=== PATIENT | male | born 1950 | race Caucasian/White ===

== ENCOUNTER → 2016-06-25 | Outpatient (CLI) | payer BC ==
--- NOTE | 2016-06-26 06:42 | PAP/PSG TECHNICIAN REPORT ---
[facility] [employer] Polysomnogram Report Study name: None Report date: 06/26/2016 Study date: 06/25/2016 Referring Physician: Dr. Stuart Name: ROBERT HARRY Interpreting Physician: Amarjit Hale M.D. Date of : 1950 [employer]: Ty Pierce RPS. Sex: Male Age: 65 StudyType: PSG PAP Weight: 185 lbs Height: 65 years, Height 5' 10" BMI: 26.54 Medications: ASPIRIN 81 MG, ATORVASTATIN CALCIUM 20 MG, OMEPRAZOLE 40 MG, Patient History PATIENT RECENTLY HAD A HOME SLEEP STUDY AND WAS POSITIVE FOR JANIYA WITH AN AHI OF 11.6/HR. HE IS HERE TODAY FOR A CPAP TITRATION. ESS = 5 RM 6 Parameters Monitored NPSG: E1-M2, E2-M1, Fp1-M2, Fp2-M1, F3-M2, F4-M2, F4-M1, C3-M2, C4-M2, C4-M1, O1-M2, O2-M2, O2-M1, T3-M2, T4-M1, P3-M2, P4-M1, CHIN1, CHIN2, HR, EKG, Legs, PFLOW, SNOR, FLOW, CFLOW, Tidal Volume, THOR, ABDO, SpO2, PLTH, CPRESS, ETCO2 Wave, ETCO2, pH Sleep Architecture Sleep Stages Time at Lights Off 11:18:13 PM STAGES Time (min.) TST (%) Time at Lights On 6:13:13 AM Wake 119.5 -- Total Recording Time (TRT) 415.50 min. N1 23.5 8 Total Sleep Period (TSP) 387.5 min. N2 189.0 64 Total Sleep Time (TST) 295.5min. N3 44.5 15 Awake Time 120.0 min. REM 38.5 13 Wake after Sleep Onset 92.0 min. Sleep Efficiency (SE) 71 % Sleep Onset Latency (EBONIE) 27.5 min. Number of Stage 1 Shifts None Awakenings 19 Stage Changes 90 Number of REM periods 3 REM 38.5 13 REM Latency 128.0 min. NREM 257.0 87 Body Position Analysis Supine Right Left Side Prone Vertical Total Sleep Time (min.) 150.8 52.0 170.1 222.08 0.0 0.0 Total Sleep Time (%) 25% 18% 58% 75 0% N/A% Total Sleep Time REM (min.) 0.0 0.0 38.5 None 0.0 0.0 Total Sleep Time NREM (min.) 73.4 52.0 131.6 None 0.0 0.0 Intermittent Wake (min.) 77.4 11.6 30.5 None 0.0 0.0 Total Sleep Period (%) 34% None None None None None Arousals Myoclonus (PLM) * Events Count Index Events Count Index Spontaneous 42 9 Events Awake (PLMW) 42 21.1 Respiratory 15 3.0 Events Asleep w/ Arousal (PLMA) 9 1.8 PLM 9 2 Events Asleep w/o Arousal (PLMS) 58 11.8 Snoring 4 1 Total Asleep 67 13.6 Total 70 14 Total 109 16 Respiratory Analysis * CA OA MA CH H RERA Total Count 0 0 0 0 13 13 13 Index 0.0 0.0 0.0 0 2.6 3 5.3 Mean Duration 0.0 0.0 0.0 0.00 26.7 16.1 21.4 Longest Duration 0.0 0.0 0.0 0.00 0.0 19.4 55.0 Respiratory Event Summary Total Supine ~Supine Right Left Prone REM NREM Apneas Count 0 0 0 0 0 N/A 0 0 Index 0.0 0 0 0.0 0.0 N/A 0 0 Hypopneas (4% Desat) Count 13 0 13 0 13 N/A 8 5 Index 2.6 0.0 4 0.0 4.6 N/A 12.5 1.2 Apneas & All Hypopneas Count 13 0 13 0 13 N/A 8 5 Index 2.6 0 4 0 5 N/A 12.5 1.2 Respiratory Events (Tree Worker+All Hyp+RERA) Count 13 9 17 0 17 N/A 8 5 Index 5.3 7 5 0.0 6.0 N/A 12.5 4.2 Respiratory Related Arousal Count 15 9 6 0 6 N/A 1 14 Index 3.0 7 2 0 2 N/A 2 3 Snoring Analysis Supine Right Left Prone REM NREM Total Snore duration 7.7 min Snores count 25 1 287 N/A 103 210 313 Snore mean duration 1.5 Sec Snores index 20 1 101 N/A 160.5 49.0 63.6 TST with snoring (%) 2.6% Desaturation Event Summary: Minimum %SpO2 Event Count Mean/Min/Max Duration(sec.) Desaturation Index % Time In Bed > 90 13 47.3 / 17.3 / 117.0 2.0 98.0 86 - 90 0 N/A 0.0 1.9 81 - 85 0 N/A 0.0 0.1 76 - 80 0 N/A 0.0 0.0 71 - 75 0 N/A 0.0 0.0 66 - 70 0 N/A 0.0 0.0 61 - 65 0 N/A 0.0 0.0 56 - 60 0 N/A 0.0 0.0 51 - 55 0 N/A 0.0 0.0 < 50 0 N/A 0.0 0.0 Total REM NREM Awake <50% 0.0 min. 0.0 min. 0.0 min. 0.0 min. 51 - 60% 0.0 min. 0.0 min. 0.0 min. 0.0 min. 61 - 70% 0.0 min. 0.0 min. 0.0 min. 0.0 min. 71 - 80% 0.1 min. 0.0 min. 0.0 min. 0.1 min. 81 - 90% 8.1 min. 3.8 min. 3.8 min. 0.5 min. 91 - 100% 399.3 min. 34.7 min. 253.2 min. 111.4 min. Average 94 93 93 95 Minimum SpO2 76 87 84 76 Desaturation Event Index 1.9 12.5 1.2 0.0 # Desat. Events below 89% 4 3 1 N/A Time(%) with Saturation below 89% 0.5 0.4 0.2 0.0 Time(min.) with Saturation below 89% 2.2 1.5 0.7 0.1 Time (mins) REM (mins) NREM (mins) % of TST SpO2 Below 90% 9 6 N3 1.1 SpO2 Below 88% 3 0 0 0 Heart Rate Analysis Min (bpm) Max (bpm) Average (bpm) Awake 51 81 59 NREM 50 76 56 REM 50 65 56 Overall 50 76 56 Supplemental O2 Values Minimum O2 level: None Value Start Time End Time [employer] Comments Mr. Harry slept in the right, left and supine positions. PVC's and PAC's noted. Leg movements noted. No bruxism noted. CPAP was initiated at +4 CMH2O and up-titrated to an optimal level of + 12 CMH2O, which nearly eliminated all respiratory events and snoring. A ResMed F10 full face size medium mask was used during titration Mr. Harry awoke to use the restroom 1 time during the night. Mr. Harry stated I did not sleep as well as I do when I am in my own bed. The final report will be interpreted and signed by a sleep physician. The completed physician report will then be placed in the patient medical record. Therapy Event: Therapy (cm H20) 4 5 6 7 9 10 11 12 Total Time at Pressure (min.) 90.7 42.9 13.1 11.0 20.8 54.7 89.2 92.7 TST at Pressure (min.) 60.2 33.9 13.1 11.0 20.3 50.7 19.2 87.2 # Periods 1 1 1 1 1 1 1 1 Sleep Onset (min.) 27.5 0.0 0.0 0.0 0.0 0.0 0.0 0.0 REM Onset (min.) N/A N/A N/A 8.7 0.0 N/A N/A 34.2 Sleep Efficiency % 66 79 100 100 97 92 21 94 Wakefulness (%) 33.6 21.0 0.0 0.0 2.4 7.3 78.5 5.9 Wakefulness (min.) 30.5 9.0 0.0 0.0 0.5 4.0 70.0 5.5 NREM 1 (%) 5.0 11.6 0.0 4.6 2.4 5.5 5.4 5.6 NREM 1 (min.) 4.5 5.0 0.0 0.5 0.5 3.0 4.8 5.2 NREM 2 (%) 32.8 67.4 94.2 63.8 28.9 72.6 16.1 55.0 NREM 2 (min.) 29.7 28.9 12.4 7.0 6.0 39.7 14.3 51.0 NREM 3 (%) 28.7 0.0 5.8 11.3 0.0 14.6 0.0 9.2 NREM 3 (min.) 26.0 0.0 0.8 1.2 0.0 8.0 0.0 8.5 REM (%) 0.0 0.0 0.0 20.4 66.3 0.0 0.0 24.3 REM (min.) 0.0 0.0 0.0 2.2 13.8 0.0 0.0 22.5 # Arousals 12 12 4 5 3 10 8 16 Arousal Index 12.0 21.2 18.3 27.3 8.9 11.8 25.1 11.0 # Snore 21 17 78 103 78 4 5 7 Snore Index 20.9 30.1 356.8 563.2 230.9 4.7 15.7 4.8 AHI 0.0 3.5 4.6 21.9 17.8 0.0 0.0 0.0 AHI Supine 0.0 0.0 N/A N/A N/A 0.0 0.0 0.0 AHI Non-Supine 0.0 5.3 4.6 21.9 17.8 0.0 0.0 0.0 NREM AHI 0.0 3.5 4.6 13.7 0.0 0.0 0.0 0.0 REM AHI N/A N/A N/A 53.7 26.2 N/A N/A 0.0 RDI 0.0 8.8 13.7 27.3 17.8 2.4 12.5 0.7 # Obstructive 0 0 0 0 0 0 0 0 # Central Ap 0 0 0 0 0 0 0 0 # Mixed 0 0 0 0 0 0 0 0 # Hypopneas 0 2 1 4 6 0 0 0 RERAS 0 3 2 1 0 2 4 1 Total Respiratory Events 0 5 3 5 6 2 4 1 Time Below SpO2 89.00% (min.) 0.0 0.0 0.0 1.5 0.6 0.0 0.0 0.0 Mean NREM SpO2 (%) 93 92 92 91 94 94 93 94 Mean REM SpO2 (%) N/A N/A N/A 90 92 N/A N/A 93 Mean Sleep SpO2 (%) 93 92 92 91 93 94 93 94 Min NREM SpO2 (%) 90 90 90 84 91 92 91 93 Min REM SpO2 (%) N/A N/A N/A 88 87 N/A N/A 92 Position Supine (min.) 8.2 11.3 0.0 0.0 0.0 4.6 18.8 30.5 Position Non-supine (min.) 52.0 22.6 13.1 11.0 20.3 46.1 0.3 56.7 LM Index Sleep 18.9 23.0 13.7 16.4 14.8 16.6 0.0 6.9 LM Index NREM 18.9 23.0 13.7 13.7 0.0 16.6 0.0 5.6 LM Index REM N/A N/A N/A 26.8 21.8 N/A N/A 10.7 Mean Heart Rate (bpm) 57 56 57 58 58 55 56 54 Min Heart Rate (bpm) 53 52 52 54 53 51 52 50
--- NOTE | 2016-06-27 00:31 | POLYSOMNOGRAPH REPORT ---
CLINICAL DATA: A 65-year-old male with BMI of 26.[address] Lockett for CPAP titration study. He had a home sleep study done which showed mild JANIYA with an AHI of 11.6. SLEEP ARCHITECTURE: Total sleep period was 387.5 minutes. Total sleep time was 295.5 minutes divided between 257 minutes of non-REM sleep and 38.5 minutes of REM sleep. Sleep onset latency was 27.5 minutes. REM latency was 128 minutes. Sleep efficiency was 71%. Awake after sleep onset was 92 minutes. Sleep consisted of stage N1 8%, N2 64%, N3 15%, REM 13%. AROUSAL DATA: Seventy arousals were recorded for an index of 14 per hour. PLM DATA: Sixty seven limb movements during sleep were noted for an index of 13.6 per hour with arousal index of 1.8 per hour. RESPIRATORY DATA: The AHI was 2.6. There were 13 hypopneic episodes. The mean duration of hypopnea was 26.7 seconds. OXIMETRY DATA: Nocturnal hypoxemia was seen. Oxygen mary was 84% during non-REM sleep. The mean saturation was 94%. Time below 88% was 3 minutes. EKG: Heart rates ranged from 50-76 beats per minute. PACs and PVCs were noted. [employer]'S COMMENTS AND TREATMENT SUMMARY: The patient slept in the right, left, and supine positions. He was started using a ResMed F10 full face mask, size medium. He was begun on CPAP and was titrated up to his final pressure setting of 12 cm water pressure. At 12 cm of water pressure, the patient slept for 87.2 minutes with an AHI of 0.7. IMPRESSION: Mild sleep apnea/hypopnea corrected with CPAP at 12 cm of water pressure ResMed F10 full face mask, size medium. RECOMMENDATIONS: The patient could be started on the above noted treatment regimen and seen back in followup within 90 days to document efficacy and compliance. [facility]
== END | disposition home or self-care (01) ==
LOC: C.NEUR 20:00
PROVIDERS: ATTEND Family Medicine
DX: G47.33 Obstructive sleep apnea (adult) (pediatric) (principal)

== ENCOUNTER → 2016-09-28 | Outpatient (CLI) | payer BC ==
[~2016-09-28] MED LIST: GADAVIST IV PRN
--- NOTE | 2016-09-28 12:13 | DIAGNOSTIC IMAGING REPORT ---
MRI OF THE BRAIN WITHOUT AND WITH IV CONTRAST CLINICAL HISTORY: Dysphagia. HISTORY OF ABNORMAL BRAIN CT. COMPARISON STUDY: Head CT dated 01/10/2016 TECHNIQUE: MRI of the brain was performed from the vertex to the skull base utilizing various T1 and T2 weighted sequences. Following the IV administration of 7.5 mL of Gadavist contrast, additional enhanced images were obtained. FINDINGS: Sagittal T1, axial diffusion, proton density and T2 weighted axial, coronal FLAIR, and pre and post axial T1-weighted images were acquired. These were supplemented with post gadolinium coronal T1 weighted images. No intra or extra-axial mass lesions are visualized. Axial diffusion-weighted images reveal no evidence of acute or subacute infarction. There is no evidence of ventricular dilatation. Proton density T2-weighted and FLAIR images reveal an old lacunar infarct in the right cerebellum. There are no abnormal flow voids. There is no evidence of pathologic enhancement. IMPRESSION: 1. Old right cerebellar lacunar infarct 2. No acute intracranial findings. No evidence of intracranial mass. No evidence of acute or subacute infarction. Electronically signed by: Feng Simon M.D. 09/28/2016 12:11 PM Dictated Date/Time: 09/28/2016 12:08 PM
== END | disposition home or self-care (01) ==
LOC: C.MRI 10:42
PROVIDERS: ATTEND Psychiatry & Neurology Neurology
DX: R13.10 Dysphagia, unspecified (principal); R94.02 Abnormal brain scan; Z86.73 Personal history of transient ischemic attack (TIA), and cerebral infarction without residual deficits

== ENCOUNTER → 2017-09-26 | Outpatient (CLI) | payer BC ==
--- NOTE | 2017-09-26 14:13 | DIAGNOSTIC IMAGING REPORT ---
R ANKLE MIN 3 VIEWS ROUTINE CLINICAL HISTORY: M25.571 pain COMPARISON: None. DISCUSSION: The bones and joint spaces appear intact. There is no evidence of fracture, dislocation or bony disease. There is no evidence for soft tissue swelling. Small heel spur IMPRESSION: Negative study. Small heel spur The above report was generated using voice recognition software. It may contain grammatical, syntax or spelling errors. Electronically signed by: Ap Hall M.D. 09/26/2017 2:11 PM Dictated Date/Time: 09/26/2017 2:11 PM
--- NOTE | 2017-09-26 14:23 | DIAGNOSTIC IMAGING REPORT ---
R FOOT MIN 3 VIEWS ROUTINE CLINICAL HISTORY: M25.571 pain COMPARISON: None. DISCUSSION: Rather significant degenerative change first metatarsophalangeal joint. Mild degenerative change of the intertarsal as well as tarsal navicular joints. Small heel spur. Moderate degenerative changes second metatarsophalangeal joint. IMPRESSION: Moderate to rather significant degenerative change primarily involving the first and to lesser extent second toes. Small heel spur. The above report was generated using voice recognition software. It may contain grammatical, syntax or spelling errors. Electronically signed by: Ap Hall M.D. 09/26/2017 2:21 PM Dictated Date/Time: 09/26/2017 2:19 PM
== END | disposition home or self-care (01) ==
LOC: C.RAD1850 13:56
PROVIDERS: ATTEND Family Medicine
DX: M25.571 Pain in right ankle and joints of right foot (principal)

== ENCOUNTER 2018-07-29 09:54 | Inpatient (IN) ==
--- NOTE | 2018-07-07 15:08 | PAT Medication Instructions ---
Medication Instructions Date of Service July 07, 2018 Home Medications Atorvastatin (Lipitor) 10mg PO PM Fluticasone (Flonase) 2 spray intranasal daily PRN Take morning of surgery With a small sip of water, OTHERWISE NOTHING TO EAT OR DRINK AFTER MIDNIGHT: Fluticasone (Flonase) 2 spray intranasal daily PRN (if needed) Take evening before surgery Atorvastatin (Lipitor) 10mg PO PM Fluticasone (Flonase) 2 spray intranasal daily PRN (if needed) Other Notes If you have any questions please call us at [phone] or [phone] or [phone] or [phone]
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
--- NOTE | 2018-07-08 10:38 | XRay Report ---
XR chest Pre-admission PA/Lat CLINICAL HISTORY: pat preoperative evaluation COMPARISON STUDY: No previous studies for comparison. FINDINGS: The bones soft tissues and hemidiaphragms are normal. The cardiomediastinal silhouette is n ormal. The lungs are clear. The pulmonary vasculature is normal. Mild emphysematous change IMPRESSION: Negative chest. Mild emphysematous change. The above report was generated using voice recognition software. It may contain grammatical, syntax or spelling errors. Electronically signed by: Ap Hall M.D. 07/08/2018 10:37 AM
[2018-07-08 10:57] LABS: BUN Creatinine Ratio 26.7 (10-20); Calcium 8.9 mg/dl (8.5-10.1); Creatinine Clr Calc Pharmacy 89.2 ml/min; Est GFR (African American) 105.5; Potassium 4.4 mmol/L (3.5-5.1)
[2018-07-08 11:00] LABS: Hematocrit (blood only) 40.1 % (42-52); Hemoglobin 13.9 g/dL (14.0-18.0); Mean Corpuscular Hgb Conc 34.7 g/dL (32-36); Mean Corpuscular Volume 88.5 fL (80-100); Mean Platelet Volume 10.3 fL (7.4-10.4); Partial Thromboplastin Time 26.9 Seconds (21.0-31.0); Platelet Count 137 K/uL (130-400); RDW Coefficient of Variation 12.8 % (11.5-14.5); RDW Standard Deviation 41.4 fL (36.4-46.3); Red Blood Count 4.53 M/uL (4.7-6.1); White Blood Count 2.98 K/uL (4.8-10.8)
[2018-07-08 11:17] LABS: Basophils # (auto) 0.01 K/uL (0-0.2); Basophils % (auto) 0.3 %; Eosinophils # (auto) 0.01 K/uL (0-0.5); Eosinophils % (auto) 0.3 %; Lymphocytes # (auto) 1.75 K/uL (1.2-3.4); Lymphocytes % (auto) 58.7 %; Monocytes # (auto) 0.49 K/uL (0.11-0.59); Monocytes % (auto) 16.4 %; Neutrophils # (auto) 0.72 K/uL (1.4-6.5); Neutrophils % (auto) 24.3 %; RBC Morphology Unremarkable
--- NOTE | 2018-07-26 10:47 | History and Physical Report ---
DATE OF ADMISSION: 07/29/2018 CHIEF COMPLAINT: Right knee pain. HISTORY OF PRESENT ILLNESS: The patient 67-year-old gentleman who has had about 4- or 5-year history of gradually increasing and progressive right knee pain and discomfort. He has been through extensive conservative treatment including both steroid shots and viscosupplementation, which have become less successful over time. The shots helped for a couple days and the viscosupplementation did not help at all. He has become more debilitated by his disease. He has got pain all the time. The more he walks and the more he weightbears, the more pain he has. He was an avid runner in the past but is having difficulty even walking any significant distance. He is really interested in surgical treatment to try and fix his knee. PAST MEDICAL HISTORY: 1. Elevated cholesterol. 2. Sleep apnea with CPAP machine. 3. Low back pain. PAST SURGICAL HISTORY: Includes, 1. Tonsillectomy. 2. Hernia repair. 3. Lipoma removal. 4. Thumb repair. 5. Carpal tunnel release. ALLERGIES: None. CURRENT MEDICATIONS: Lipitor. SOCIAL HISTORY: He is a 67-year-old male. He is . 6 drinks per week. Does not smoke. FAMILY HISTORY: Noncontributory. REVIEW OF SYSTEMS: Negative for diabetes, neurologic problem, vascular problem, or bleeding disorders. No chest pain or shortness of breath. No history of DVT or PE. No bleeding problems. PHYSICAL EXAMINATION: GENERAL: Reveals a healthy, pleasant middle-aged male. Looks to be in excellent health. HEENT: Benign. NECK: Supple. No lymphadenopathy. LUNGS: Clear to auscultation. HEART: Regular rate and rhythm. ABDOMEN: Soft, nontender, nondistended. EXTREMITIES: Grossly neurovascularly intact except as follows: Examination of the right knee shows moderately advanced medial compartment arthritis. He has got essentially complete loss of his joint space, particularly in the 40 degree flexion films. He has got some lateral compartment disease as well. ASSESSMENT: A 67-year-old gentleman and a previous avid runner with right knee degenerative joint disease. It is fairly advanced and is beyond the point where a knee arthroscopy would help him. He has failed conservative treatment and would like intervention, so that at least he can walk and become more active. PLAN: We talked about treatment options and the best treatment for this gentleman at his age with his disease is a knee replacement. We will take him to the operating room and do a right total knee replacement. The risks and benefits of this procedure were explained to the patient including but not limited to DVT, PE, , infection, neurological injury, vascular injury, bleeding problem, pain, limited range of motion, stiffness, failure to relieve symptoms, incomplete relief of symptoms, need for further surgery in the future, fracture, leg length inequality, nerve palsy, need for revision surgery. The patient understands and desires to proceed. Informed consent was obtained. I did talk to him specifically about knee replacement, it is not made for running or impact activities. The goal is to get him back walking and not necessarily running. The patient understands and desires to proceed.
[~2018-07-29 09:54] MED LIST changes: +ACETAMINOPHEN 500 MG TAB PO SCH; +BUPIVACAINE 0.5 % 5 MG/1 ML PF 10ML VIAL ONE; +BUPIVACAINE LIPOSOME/PF 266 MG, BUPIVACAINE/EPINEPHRINE 50 ML, SODIUM CHLORIDE 0.9% 30 ... INFIL SCH; +CEFAZOLIN 2000MG 2,000 MG/15 ML SYR IV SCH; +EPINEPHrine INJ 1 MG/ML AMP ONE; +FAMOTIDINE 20 MG TAB PO SCH; +GABAPENTIN 300 MG PO SCH; -GADAVIST IV PRN; +LR 500ML BOLUS, THEN 15ML/HR IV SCH; +LR 60ML/HR IV SCH; +METOCLOPRAMIDE HCL 10 MG TABLET PO SCH; +ROPIVACAINE 0.5% 5 MG/ML 30 ML VIAL ONE; +SCOPOLAMINE 1.5 MG TDSY TD SCH; +TRANEXAMIC ACID 1,000 MG **IV Intra-op IV SCH
--- NOTE | 2018-07-29 10:32 | History & Physical Bridge Note ---
Date of Service July 29, 2018 History & Physical Bridge Note I have examined the patient, reviewed the History & Physical and in the interval since the performance of the History & Physical I have noted the following changes of clinical significance: no changes noted
[2018-07-29] MEDS ORDERED: LABETALOL HCL IV 5 MG/ML 20ML IV PRN (10:44)
[2018-07-29] MEDS ORDERED: fentaNYL citrate 100 MCG/2 ML VIAL IV PRN (10:44)
[2018-07-29] MEDS ORDERED: HYDROmorphone INJ 1 MG/ML SYRINGE IV PRN (10:44)
[2018-07-29] MEDS ORDERED: MEPERIDINE HCL 25 MG/ML CARP IV PRN (10:44)
[2018-07-29] MEDS ORDERED: PHENYLEPHRINE 100MCG/ML 5ML SYR IV PRN (10:44)
[2018-07-29] MEDS ORDERED: ePHEDrine sulfate 50 MG/ML AMP IV PRN (10:44)
[2018-07-29] MEDS ORDERED: ONDANSETRON INJ 2 MG/ML 2 ML VIAL IV PRN ×2 (10:44→15:51)
[2018-07-29] MEDS ORDERED: ATROPINE SULFATE 0.1 MG/ML 10ML SYR IV PRN (10:44)
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
[2018-07-29] MEDS ORDERED: MIDAZOLAM HCL 1 MG/ML 2ML VIAL ONE (11:57)
[2018-07-29] MEDS ORDERED: fentaNYL citrate 100 MCG/2 ML VIAL ONE (11:57)
[2018-07-29] MEDS ORDERED: BUPIVACAINE LIPOSOME 1.3% 266 MG/20 ML VIAL ONE (12:33)
[2018-07-29] MEDS ORDERED: BACITRACIN INJ 50,000 UNIT VIAL ONE (12:33)
[2018-07-29] MEDS ORDERED: SODIUM CHLORIDE 0.9% PF 50 ML VIAL ONE (12:33)
[2018-07-29] MEDS ORDERED: EPINEPHrine INJ 1 MG/ML AMP ONE (12:33)
[2018-07-29] MEDS ORDERED: BUPIVACAINE 0.25% 30 ML VIAL ONE (12:34)
[2018-07-29] MEDS ORDERED: PROPOFOL IV EMULSION 10 MG/ML 20 ML VIAL IV ONE (14:24)
[2018-07-29] MEDS ORDERED: LIDOCAINE HCL 2% 2 ML VIAL/AMP(20MG/ML) INFIL ONE (14:24)
--- NOTE | 2018-07-29 14:29 | Post Operative Brief Note ---
Immediate Post Op Note v1 Date of Surgery July 29, 2018 Pre & Post Diagnosis Operation Date: 07/29/18 12:30 Pre-Op Diagnosis: RIGHT KNEE DEGENERATIVE JOINT DISEASE Post-Op Diagnosis: RIGHT KNEE DEGENERATIVE JOINT DISEASE Procedure Operation Date: 07/29/18 12:30 Actual Procedures p Right Total Knee Arthroplasty, Cemented(Right) - Hector Angelo MD Surgeon Hector Angelo MD Mill Controller Chantale, PAC Estimated Blood Loss 50 Findings Consistent with Post-Op Diagnosis Fluids 1700 cc Specimens Right Knee Drains Dhillon Catheter Anesthesia Type Spinal MAC Complications none Disposition Accompanied Patient To Recovery: No Disposition: Recovery Room
--- NOTE | 2018-07-29 14:50 | Anesthesiology Progress Note ---
Date of Service July 29, 2018 Anesthesia Post Procedure Vital Signs Vital Signs: Temp Pulse Pulse Resp BP Pulse Ox 07/29/18 14:47 50 L 16 102/59 L 100 07/29/18 14:35 36.7 C 62 16 99/60 L 99 07/29/18 10:27 36.7 C 69 18 141/91 H 96 Notes Mental Status: alert / awake / arousable Patient Amnestic to Procedure: Yes Nausea / Vomiting: adequately controlled Pain: adequately controlled Airway Patency, RR, SpO2: stable & adequate BP & HR: stable & adequate Hydration State: stable & adequate Neuraxial Anesthesia: was administered and sensory block is resolving Anesthetic Complications: no major complications apparent and Pt Satisfied with anesthetic care
--- NOTE | 2018-07-29 15:19 | XRay Report ---
XR knee RT 2V routine CLINICAL HISTORY: Surgical Post Op DEGENERATIVE ARTHRITIS COMPARISON: 03/29/2018 DISCUSSION: There are postsurgical changes of a total right knee arthroplasty and patellar resurfacin g. The femoral tibial components appear well seated. Overlying skin jeet are evident. There is air within the soft tissues consistent with recent surgery. There is no evidence for soft tissue swellin g. IMPRESSION: Postsurgical changes of a total right knee arthroplasty. Electronically signed by: Feng Simon M.D. 07/29/2018 3:17 PM
[2018-07-29] MEDS ORDERED: NALOXONE HCL 0.4 MG/1 ML VIAL/CARP IV PRN (15:51)
[2018-07-29] MEDS ORDERED: FLUTICASONE PROPIONATE NA SPR 16 GM BTL PRN (15:51)
[2018-07-29] MEDS ORDERED: TAMSULOSIN HCL 0.4 MG CAP PO PRN (15:51)
[2018-07-29] MEDS ORDERED: METOCLOPRAMIDE HCL INJ 5 MG/ML 2 ML VIAL IV PRN (15:51)
[2018-07-29] MEDS ORDERED: ALUMINUM/MAGNESIUM SUSP 30 ML UDC PO PRN (15:51)
[2018-07-29] MEDS ORDERED: MAGNESIUM HYDROXIDE SUSP 30 ML UDC PO PRN (15:51)
[2018-07-29] MEDS ORDERED: BISACODYL 10 MG SUPP PR PRN (15:51)
[2018-07-29] MEDS: SODIUM CHLORIDE 0.9% 1000ML 1,000 ML IV SCH (16:14)
[2018-07-29] MEDS: CHECK SCOPOLAMINE PATCH PLACEMENT SCH ×2 (16:15→23:59)
[2018-07-29] MEDS: ASCORBIC ACID 500 MG TAB PO SCH (17:11)
[2018-07-29] MEDS: FERROUS GLUCONATE 324 MG TAB PO SCH (17:11)
[2018-07-29] MEDS: KETOROLAC TROMETHAMINE 15 MG/ML VIAL IV SCH ×2 (18:06→23:59)
[2018-07-29] MEDS: CEFAZOLIN 2000MG 2,000 MG/15 ML SYR IV SCH (19:55)
[2018-07-29] MEDS ORDERED: TRANEXAMIC ACID 1,000 MG in 0.9 % SODIUM CHLORIDE 100 ML IV SCH (20:31)
[2018-07-29] MEDS: ATORVASTATIN 10 MG TAB PO SCH (21:07)
[2018-07-29] MEDS: HYDROmorphone INJ 0.5 MG/0.5 ML SYR IV PRN (21:07)
[2018-07-29] MEDS: TAPENTADOL HCL ER 50 MG TABCR PO SCH (21:07)
[2018-07-29] MEDS: SENNA 8.6 MG TAB PO SCH (21:07)
[2018-07-29] MEDS: ASPIRIN 81 MG ECTAB PO SCH (21:07)
[2018-07-29] MEDS: DOCUSATE SODIUM 100 MG CAP PO SCH (21:07)
[2018-07-29] MEDS: ACETAMINOPHEN 500 MG TAB PO SCH (22:21)
--- NOTE | 2018-07-29 22:43 | Operative Report ---
DATE OF OPERATION: 07/29/2018 SURGEON: Hector Angelo MD BUSINESS EXECUTIVE: ELIZABETH Szymanski PREOPERATIVE DIAGNOSIS: Right knee degenerative joint disease. POSTOPERATIVE DIAGNOSIS: Same. PROCEDURE PERFORMED: Right cemented posterior stabilized total knee arthroplasty. COMPLICATIONS: None. ESTIMATED BLOOD LOSS: 50 mL. FLUID REPLACEMENT: 1700 mL crystalloid fluid replacement. TOURNIQUET TIME: 58 minutes at 300 mmHg. ANESTHESIA: Spinal with adductor canal block. DRAINS: None. SPECIMENS: Right knee sent for pathology. OPERATIVE INDICATIONS: The patient is a 67-year-old very active gentleman who has had a year history of markedly increasing right knee pain and discomfort, unresponsive to conservative care. He is used to maintaining an active lifestyle and has been unable to do anything close to that due to his recurrent knee pain, discomfort, and swelling. He has been through extensive conservative care without adequate relief. He elected to proceed with surgical treatment. OPERATIVE FINDINGS: Operative findings were advanced right knee DJD. He had extensive grade 4 changes of the medial compartment as well as patellofemoral compartment. The lateral compartment was pretty well spared. He did have a significant joint effusion. OPERATIVE IMPLANTS: Operative implants consisted of, 1. Biomet Vanguard size 70 right posterior stabilized femoral component. 2. A Biomet size 75 tibial tray. 3. A 12-mm posterior stabilized polyethylene insert. 4. A 31 x 8 all poly patella. OPERATIVE PROCEDURE: The patient was taken to the operating room, identified and placed on the operating table in supine position. All contact areas were appropriately padded. IV antibiotics were provided by the anesthesia team. Dhillon catheter was placed in sterile fashion. A right thigh tourniquet was then placed and the right lower extremity was then prepped and draped in the usual sterile fashion. The right leg was elevated and exsanguinated with Esmarch and tourniquet was placed at 300 mmHg. An anterior approach to the right knee was then performed through a longitudinal incision centered over the patella. Sharp dissection was carried through subcutaneous tissues down to the level of the extensor mechanism. Medial parapatellar arthrotomy incision was made. Some subperiosteal dissection was carried out medially. The fat pad was resected from beneath the patellar tendon. The lateral patellofemoral ligament was released. Patella was everted and knee was flexed. The osteophytes were taken off the distal femur. The ACL and PCL were then released from the distal femur. The tibia subluxated anteriorly. The external tibial alignment jig was placed in the anterior face of the tibia and adjusted 16 mm medially. Proximal tibial cut was made to remove about 2-3 mm of bone from the most deficient aspect of the medial tibial plateau. Some osteophytes were taken off medial and posteromedially. Tibia was sized to a size 75. Attention was then drawn to the femur. The distal femur was entered with a sharp drill bit. Intramedullary canal was suctioned. A right 6-degree valgus cutting guide was placed. The distal femoral cutting block was pinned in place. Distal femoral cut was made to take an additional 3 mm of bone off the distal femur. Femur was then sized to a size 70. We did downsize this slightly. The AP cutting block was pinned parallel to the epicondylar axis, which was 3 degrees of external rotation. The anterior cut, anterior chamfer, posterior cut, posterior chamfer cuts were made. Box cutting guide was placed and adjusted slightly lateral and the box cut was made. The knee was flexed. The remnants of the medial and lateral menisci were excised. The osteophytes were taken off the posterior aspect of the femur. Trial femoral component was placed. The tibial tray was pinned in maximum external rotation and drill and stem punch were used to create a defect in proximal tibia for the tibial tray. The knee was then trialed and a 12 mm insert fit most appropriately. Attention was then drawn to the patella. The patella was cleaned of all soft tissue. Patellar thickness measured 22 mm in thickness and it was cut down to 13. It was sized to a size 31 patella. Lug holes were drilled for 31 patella. The lateral osteophyte was removed. Patellar button was placed. Knee was taken through range of motion and patella tracked nicely with no thumbs test. Attention was then drawn toward placement of the permanent components. All trial components were removed. Bone plug was placed in the distal femur to limit blood loss. A double batch of Palacos G cement was mixed. A Biomet Vanguard size 70 right posterior stabilized femoral component, size 75 tibial tray, a 12 mm posterior stabilized polyethylene insert, and a 31 x 8 all poly patella were then cemented in place. Knee was brought out into full extension until the cement hardened. A final cement check was then performed. Pericapsular tissues were injected with a total of 100 mL of a combination of 20 mL of Exparel, 30 mL of normal saline, 50 mL of 0.25% Marcaine with epinephrine. The patient did receive 1 gram of tranexamic acid. The tourniquet was then let down for a final tourniquet time of 58 minutes. Hemostasis was assured using electrocautery. Extensor mechanism was then closed with a combination of #1 PDS suture and #1 Vicryl suture in a [id number] fashion. Extensor mechanism was checked and found to be intact. The subcutaneous tissues were then closed with #2 Dexon suture in a buried interrupted fashion. The skin was closed with skin jeet. Leg was then cleaned, dried, and a sterile dressing of Xeroform, 4 x 4's, sterile cast padding, and Christophe bandage were applied. The patient was then transferred to the recovery room in stable condition. The patient tolerated the procedure well with no complications. All needle and sponge counts were correct at the end of the operation. I attest to the content of the Intraoperative Record and any orders documented therein. Any exception s are noted below.
[2018-07-30] MEDS: SODIUM CHLORIDE 0.9% 1000ML 1,000 ML IV SCH (02:15)
[2018-07-30] MEDS ORDERED: Nursing to Pharmacy Communication ONE (02:16)
[2018-07-30] MEDS: OXYCODONE HCL IR 5 MG TAB (IMMEDIATE RELEASE) PO PRN ×3 (02:43→18:17)
[2018-07-30] MEDS: CEFAZOLIN 2000MG 2,000 MG/15 ML SYR IV SCH (04:37)
[2018-07-30] MEDS: KETOROLAC TROMETHAMINE 15 MG/ML VIAL IV SCH ×4 (06:10→22:53)
[2018-07-30] MEDS: ACETAMINOPHEN 500 MG TAB PO SCH ×3 (06:11→22:53)
[2018-07-30 07:11] LABS: Hematocrit (blood only) 32.3 % (42-52); Hemoglobin 11.3 g/dL (14.0-18.0); Mean Corpuscular Volume 87.5 fL (80-100); Mean Platelet Volume 10.1 fL (7.4-10.4); Platelet Count 107 K/uL (130-400); RDW Coefficient of Variation 12.8 % (11.5-14.5); RDW Standard Deviation 41.2 fL (36.4-46.3); Red Blood Count 3.69 M/uL (4.7-6.1); White Blood Count 3.33 K/uL (4.8-10.8)
[2018-07-30 07:45] LABS: BUN Creatinine Ratio 15.6 (10-20); Calcium 7.7 mg/dl (8.5-10.1); Creatinine Clr Calc Pharmacy 78.7 ml/min; Est GFR (African American) 96.8; Est GFR (Non-African American) 83.6; Potassium 4.1 mmol/L (3.5-5.1)
[2018-07-30] MEDS: ASCORBIC ACID 500 MG TAB PO SCH ×2 (08:36→18:15)
[2018-07-30] MEDS: FERROUS GLUCONATE 324 MG TAB PO SCH ×2 (08:36→18:14)
[2018-07-30] MEDS: MULTIVITAMIN TAB PO SCH (08:36)
[2018-07-30] MEDS: ASPIRIN 81 MG ECTAB PO SCH ×2 (08:37→20:07)
[2018-07-30] MEDS: TAPENTADOL HCL ER 50 MG TABCR PO SCH ×2 (08:41→20:07)
--- NOTE | 2018-07-30 10:19 | Anesthesiology Progress Note ---
Date of Service July 30, 2018 Anesthesia Post Procedure Vital Signs Vital Signs: Temp Pulse Pulse Pulse Resp BP Pulse Ox 07/30/18 07:41 37.1 C 53 L 16 108/56 L 96 07/30/18 03:00 36.8 C 56 L 16 121/72 96 07/29/18 22:59 37.1 C 56 L 16 130/76 98 07/29/18 18:21 36.5 C 46 L 20 124/76 97 07/29/18 17:21 36.5 C 42 L 20 130/80 99 07/29/18 16:21 36.7 C 44 L 20 119/64 99 07/29/18 16:07 36.5 C 55 L 20 112/64 96 07/29/18 15:40 36.7 C 52 L 18 104/59 L 96 07/29/18 15:15 51 L 15 98/61 L 94 07/29/18 15:05 54 L 14 104/60 97 07/29/18 14:55 55 L 16 103/64 100 07/29/18 14:45 50 L 16 102/59 L 100 07/29/18 14:35 36.7 C 62 16 99/60 L 99 07/29/18 10:27 36.7 C 69 18 141/91 H 96 Pain Intensity Right Knee: Pain Intensity: 3 Notes Mental Status: alert / awake / arousable Nausea / Vomiting: adequately controlled Pain: adequately controlled Airway Patency, RR, SpO2: stable & adequate BP & HR: stable & adequate Hydration State: stable & adequate Neuraxial Anesthesia: was administered and sensory block resolved Anesthetic Complications: no major complications apparent and Pt Satisfied with anesthetic care
[2018-07-30] MEDS: HYDROmorphone INJ 0.5 MG/0.5 ML SYR IV PRN ×3 (10:33→20:07)
[2018-07-30] MEDS: DOCUSATE SODIUM 100 MG CAP PO SCH ×2 (10:34→20:07)
--- NOTE | 2018-07-30 15:32 | Progress Note ---
DATE: 07/30/2018 SUBJECTIVE: 67-year-old gentleman postop day 1 from right knee replacement. He is doing okay. His knee is pretty sore. No chest pain or shortness of breath. Not feeling dizzy or lightheaded. OBJECTIVE: VITAL SIGNS: Temperature 37.2. Vital signs stable. PHYSICAL EXAMINATION: GENERAL: Reveals a pleasant, middle-aged male. He is sitting up in bed and talking to his . He looks reasonably comfortable. LUNGS: Clear to auscultation. HEART: Regular rate and rhythm. ABDOMEN: Soft, nontender, nondistended. EXTREMITIES: Grossly neurovascularly intact except as follows: Examination of the right leg reveals the dressing to be in place. There is a little bit of bloody drainage on the anterior aspect of his dressing. He can dorsiflex and plantarflex his foot appropriately. He is neurologically intact. LABORATORY DATA: Hemoglobin 11.3. Hematocrit 32.3. Electrolytes are stable. ASSESSMENT: 67-year-old gentleman postop day 1 from right knee replacement, doing reasonably well. His pain is reasonably well controlled. He is neurologically intact. PLAN: 1. DVT prophylaxis including thigh-high TEDs, SCDs, and aspirin twice a day. 2. PT/OT. Weight bear as tolerated. Right total knee protocol. 3. Pain control, doing okay with current pain regimen. 4. Disposition: Plan to discharge to home with some home health once adequately recovered.
[2018-07-30] MEDS: SENNA 8.6 MG TAB PO SCH (20:07)
[2018-07-30] MEDS: ATORVASTATIN 10 MG TAB PO SCH (20:07)
[2018-07-31] MEDS: KETOROLAC TROMETHAMINE 15 MG/ML VIAL IV SCH ×2 (05:53→11:31)
[2018-07-31] MEDS: ACETAMINOPHEN 500 MG TAB PO SCH ×2 (05:54→13:44)
[2018-07-31] MEDS: OXYCODONE HCL IR 5 MG TAB (IMMEDIATE RELEASE) PO PRN ×2 (07:28→16:23)
[2018-07-31] MEDS: ASPIRIN 81 MG ECTAB PO SCH (07:29)
[2018-07-31] MEDS: DOCUSATE SODIUM 100 MG CAP PO SCH (07:29)
[2018-07-31] MEDS: ASCORBIC ACID 500 MG TAB PO SCH (07:29)
[2018-07-31] MEDS: FERROUS GLUCONATE 324 MG TAB PO SCH (07:30)
[2018-07-31] MEDS: MULTIVITAMIN TAB PO SCH (07:30)
[2018-07-31] MEDS: TAPENTADOL HCL ER 50 MG TABCR PO SCH (07:32)
--- NOTE | 2018-07-31 08:01 | Progress Note ---
DATE: 07/31/2018 SUBJECTIVE: A 67-year-old gentleman postop day 2 from a right knee replacement. He is doing pretty well. Had a little bit of a low-grade fever overnight. No other complaints of knee pain. It is manageable with meds. No chest pain or shortness of breath. Not feeling dizzy or lightheaded. OBJECTIVE: VITAL SIGNS: Temperature is 37.9. Vital signs stable. GENERAL: Physical examination reveals a pleasant, middle-aged male. He is lying in bed, looks pretty comfortable. EXTREMITIES: Examination of the right leg reveals the leg to be well aligned. Some moderate swelling around his knee. Just a trace bit of drainage. Calf is soft and supple. He is neurologically intact. ASSESSMENT: A 67-year-old gentleman postop day 2 from right knee replacement, doing pretty well. He has had a low-grade fever, which is not unusual. There are no focal signs of infection or problems. His pain is controlled. PLAN: 1. DVT prophylaxis including thigh-high TEDs, SCDs, and aspirin twice a day. 2. PT and OT. Weight bear as tolerated. Right total knee protocol. 3. Pain control. Doing well with current pain regimen. 4. Disposition: Plan to discharge to home with some home health later today.
--- NOTE | 2018-08-02 03:29 | Discharge Summary ---
ADMITTING PHYSICIAN AND SURGEON: Hector Angelo MD ADMITTING DIAGNOSIS: Right knee degenerative joint disease. SURGERY PERFORMED: Right total knee arthroplasty. SECONDARY DIAGNOSES: Elevated cholesterol, sleep apnea, low back pain. CONSULTATIONS: None obtained. HISTORY AND PHYSICAL EXAMINATION: Well documented in the patient's chart. HOSPITAL COURSE: The patient was admitted on 07/29/2018, underwent total knee arthroplasty, and tolerated the procedure well. There were no complications. He was transferred to the PACU postoperatively and later to the orthopedic floor for further care. He was given Ancef for antibiotic prophylaxis, KATEY stockings, SCDs, and aspirin for DVT prophylaxis. Hemoglobin, hematocrit, and vital signs were monitored during his hospital stay and remained stable. He developed some mild postoperative anemia. Did not require any blood transfusions. There were no complications. By postoperative day 2, he was tolerating a regular diet. Pain was controlled with oral pain medicine. He was participating in physical therapy. On postop day 2, he was discharged home, set up with home health services. He was given printed discharge instructions including new prescriptions for Extra Strength Tylenol, aspirin, oxycodone. Continue his home medications, continue physical therapy, weightbearing as tolerated, KATEY stockings. Follow up in approximately 2 weeks postop or sooner if there are any problems or concerns.
== END 2018-07-31 16:42 | disposition home health service (06) | DRG 470 ==
LOC: ASU 09:54 → 3E 14:33
DX: Z86.73 Personal history of transient ischemic attack (TIA), and cerebral infarction without residual deficits; E78.5 Hyperlipidemia, unspecified; Z87.891 Personal history of nicotine dependence; R73.03 Prediabetes; M17.11 Unilateral primary osteoarthritis, right knee; G47.30 Sleep apnea, unspecified

== ENCOUNTER 2025-04-18 16:46 | Inpatient (IN) ==
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
[2025-04-18] MEDS: SODIUM CHLORIDE 0.9% 1,000 ML IV ONE (18:03)
[2025-04-18] MEDS: ACETAMINOPHEN 1,000 MG/100 ML VIAL IV STA (18:20)
[2025-04-18 18:25] LABS: Hematocrit (blood only) 33.1 % (42.0-52.0); Hemoglobin 11.7 g/dl (14.0-18.0); Mean Corpuscular Hemoglobin 32.5 pg (25.0-34.0); Mean Corpuscular Volume 91.9 fL (80.0-100.0); Platelet Count 99 K/uL (130-400); RDW Standard Deviation 46.7 fL (36.4-46.3); Red Blood Count 3.60 M/uL (4.70-6.10); White Blood Count 28.53 K/ul (4.8-10.8)
[2025-04-18] MEDS: LIDOCAINE 5% 1 PATCH TD STA (18:27)
[2025-04-18] MEDS: OPTIRAY 320 100ml IV ONE (18:35)
[2025-04-18 18:38] LABS: Alanine Aminotransferase 11.0 U/L (7-52); Albumin Globulin Ratio 1.1 (0.9-2); Albumin Level 4.1 gm/dl (3.4-5.0); Alkaline Phosphatase 117.0 U/L (34-104); Anion Gap 8.0 (3-11); Bilirubin,Total 0.4 mg/dl (0.2-1.0); Blood Urea Nitrogen 14.0 mg/dl (6-23); Calcium 9.4 mg/dl (8.6-10.3); Carbon Dioxide 26.0 mmol/L (21-32); Chloride 101.0 mmol/L (98-107); Creatinine Clr Calc Pharmacy 77.2 ml/min; Globulin 3.7 gm/dl (2.5-4.0); Glucose 94.0 mg/dl (70-99(Fasting)); Lipase 21.0 U/L (11-82); Magnesium 1.7 mg/dl (1.7-2.4); Potassium 3.8 mmol/L (3.5-5.1); Sodium 135.0 mmol/L (136-145); Total Protein 7.8 gm/dl (6.0-8.3)
[2025-04-18 18:54] LABS: Thyroid Stimulating Hormone 2.441 uIu/ml (0.300-4.500)
[2025-04-18 18:55] LABS: INR 1.1 (0.9-1.1); Prothrombin Time 11.9 Seconds (9.0-12.0)
--- NOTE | 2025-04-18 18:57 | XRay Report ---
Chest radiograph, one view History: Chest pain Comparison: None Findings: Single AP view of the chest performed. No focal consolidation or pleural effusion. No pneumothorax. The cardiomediastinal silhouette is within normal limits. Normal pulmonary vascularity. No evidence for lymphadenopathy. No visualized bony or soft tissue abnormality. Impression: Normal chest radiograph Electronically signed by Edwin Blanc 04-18-2025 6:56 PM
[2025-04-18 19:08] LABS: ALC (manual) 2.00 K/uL (1.2-3.4); ANC (manual) 19.97 K/uL (1.4-6.5); Blast # (manual) 0.29 K/uL (0-0); RBC Morphology Unremarkable
--- NOTE | 2025-04-18 19:31 | CT Scan Report ---
EXAMINATION: CT of the abdomen and pelvis performed after the administration of IV contrast TECHNIQUE: Helical CT images from the lung bases through the symphysis pubis were obtained with contrast. Coronal and sagittal reformatted images were generated at a workstation for further assessment. Dose reduction techniques were achieved by using automatic exposure control and/or adjustment of mA and/or kV according to patient size and/or use of iterative reconstruction technique. COMPARISON: 03/29/2025 HISTORY: Abdominal pain FINDINGS: Lower chest: No consolidation. No pleural effusion or pneumothorax. Left lower lobe 7 mm nodule on image 9, and 6 mm nodule in the left lower lobe on image 27 are unchanged. Liver: The contrast-enhanced liver is normal in size, contour, and attenuation.The hepatic veins and portal veins are patent. There is a 12 mm right lobe hepatic cyst. Gallbladder: Unremarkable. Spleen: The spleen is enlarged measuring 16.5 cm in length. Pancreas: Unremarkable. Adrenal glands: Unremarkable. Kidneys: The contrast enhanced kidneys are normal in size and without hydronephrosis. The kidneys enhance symmetrically. Abdominal vasculature: The abdominal aorta is normal in course and caliber noting mild/moderate atherosclerotic calcification. Bowel: A large segment of the sigmoid colon is contained within a left inguinal hernia. There is large subsolid colonic fecal retention. No bowel obstruction is seen. Enteric contrast reaches the right colon. A segment of small bowel is contained within the right inguinal hernia. The appendix is well-visualized and normal. Peritoneum: There is no intraperitoneal free air or abdominal ascites. Lymph nodes: Mildly prominent, shotty appearing retroperitoneal, pelvic and inguinal lymph nodes are unchanged. Pelvic viscera: The prostate gland is mildly enlarged and heterogeneous. The bladder wall appears thickened/trabeculated indicating chronic outlet obstruction. There are left larger than right inguinal hernias. Both hernias contain segments of bowel. Skeletal structures: The skeletal structures are osteopenic. There is moderate lumbosacral spondylosis. S1 is a transitional lumbosacral segment. There are bilateral pars defects at L5 with 10 mm anterolisthesis of L5-S1. No lytic or blastic lesions are seen. Degenerative change is noted in the sacroiliac joints and pubic symphysis. IMPRESSION: Large, subsolid colonic stool burden suggestive of constipation. Bilateral inguinal hernias containing a bowel, similar to prior. No bowel obstruction. No change in 7 mm and 6 mm pulmonary nodules in the left lower lobe. Electronically signed by Edwin Blanc 04-18-2025 7:31 PM
--- NOTE | 2025-04-18 20:57 | History & Physical Report ---
Date of Service April 18, 2025 Assessment & Plan (1) Myelodysplastic syndrome: (2) Diarrhea: (3) Bradycardia: (4) Low back pain: (5) Sleep apnea: (6) Hyperlipidemia: Plan 74yo male with history of MDS presenting with diarrhea, abdominal pain and bloating #Myelodysplastic syndrome - patient had a bone marrow biopsy performed on 11/05/24 which revealed normocellular bone marrow with maturing trilineage hematopoiesis, negative for overt dysplasia, mild myelofibrosis. Flow cytometry with atypical/left shifted myeloid maturation with 10.4% myeloblasts. Patient with leukocytosis presently with WBC=28.52 with presence of immature cells - metamyelocytes, myelocytes and blasts. LAD again noted on CT imaging - unchanged from prior. Concern for possible progression of disease. -Admit to medical with telemetry -Follow blood cultures sent from the ER -Check peripheral blood smear -Repeat CBC with differential in AM -Hematology/Oncology consultation appreciated -Continue chronic suppressive therapy with Acyclovir 400mg po BID, Cefdinir 300mg po BID and Fluconazole 200mg po qPM (order placed for PM dose) #Bradycardia- patient with sinus bradycardia, largely asymptomatic. HR did dip into the 30's while in the ER. Blood pressure maintained. Possibly secondary to Fluconazole or Acyclovir? Uncommon side effects -Telemetry monitoring -Check random cortisol -Atropine if patient becomes symptomatic - not currently ordered #Diarrhea - patient with diarrhea ongoing for the last [address] with large subsolid colonic tool burden suggestive of constipation. Possible overflow diarrhea. -Check stool PCR and c. diff studies -Miralax 17mg po BID -Senna/Colace po qAM -IVF with LR at 100mL/hr x 2L -Electrolyte repletion -Magnesium x 3gm ordered #JANIYA -CPAP qHS 12cm H2O #Hyperlipidemia -Continue Atorvastatin 10mg po q daily F/E/N - LR at 100mL/hr x 2L, Mg repletion, Regular diet Ppx - Lovenox - monitor platelets Code - Full History of Present Illness Chief Complaint: diarrhea Primary Care Provider: DO Nayan Hodges Talat is a 74yo male with history of Myelodysplastic Syndrome on Pegfilgrastim injections (FULPHILA) - last injection 3 weeks ago, Acyclovir, Cefdinir and Fluconazole for chronic suppressive therapy presenting with abdominal distention, bloating and diarrhea over the last 4 days. Patient reports passing watery, non-bloody bowel movements over the last 4 days. Some abdominal distention and bloating. No nausea, vomiting. No fever but has had some chills. Patient is scheduled to have a repeat bone marrow biopsy and possible lymph node biopsy to be performed on 04/27/25. He had a CT scan performed 03/29/25 which revealed several prominent to mildly enlarged axillary, mediastinal, abdominal, pelvic and inguinal lymph nodes as well as splenomegaly. In the ER patient is afebrile, bradycardia ER Course: Tylenol 1gm NSS x 1L Lidoderm patch [id number] Miralax 17gm Allergies Allergy/AdvReac Type Severity Reaction Status Date / Time No Known Drug Allergies Allergy Unknown Unknown Verified 03/09/25 12:33 Home Medications Medication Instructions Recorded Confirmed Type atorvastatin 10 mg tablet (Lipitor) 10 mg PO DIRECTED 05/01/22 04/18/25 History acyclovir 400 mg tablet 400 mg PO BID 02/10/25 04/19/25 History fluconazole 200 mg tablet 200 mg PO QPM 02/10/25 04/19/25 History fluticasone propionate 50 1 spray intranasal DAILY PRN prn 02/10/25 04/18/25 History mcg/actuation nasal spray,suspension (Flonase Allergy Relief) cefdinir 300 mg capsule 300 mg PO BID 02/11/25 04/19/25 History Past Med/Surg History Problem List (Updated 04/19/25 @ 01:58 by Susu Angelo DO) Bradycardia Myelodysplastic syndrome (Acute) Diarrhea (Acute) Low back pain (Acute) Sensorineural hearing loss (SNHL) of both ears S/P nasal septoplasty Chronic rhinitis Hypertrophy of both inferior nasal turbinates Nasal alar collapse Allergic rhinitis Nasal septal deviation Nasal congestion Sleep apnea in adult History of total right knee replacement Encounter for pre-operative examination Prediabetes Medical History MDS (myelodysplastic syndrome) follow with Dr Correa ([facility] at [place]) Leukopenia pt follows with CCP ; per pt, no known cause (he did have a BM bx previously); receives Fulphila injections q2wks Frequent urination at night Low platelet count following with [facility], Dr.Sunny, pt states unsure what causing this and he did complete BM bx Sensorineural hearing loss (SNHL) of both ears History of COVID-19 2023-resolved Allergic rhinitis Prediabetes no meds, patient denies 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 Pt never had symptoms, but was told in the past he had a stroke. Osteoarthritis Sleep apnea CPAP Hyperlipidemia Surgical History History of bone marrow biopsy (05/2024) [facility], patient is following with Dr Gomez Correa, low platelet, and low white blood cell count, currently on acyclovir, fluconazole and cefdinir prophylactically per heme (could not tolerate levofloxacin) History of nasal septoplasty with bilateral inferior turbinate reduction-09/18/23-Dr. Palacios Hx of oral surgery dental implants History of knee replacement right History of colonoscopy History of carpal tunnel release L History of thumb surgery S/P ACCIDENT Status post excision of lipoma History of herniorrhaphy History of tonsillectomy Family History Family/Other Asthma Father Cancer Hypertension Allergies Intestinal cancer Brother Cancer Hypertension Intestinal cancer Other Esophageal cancer No family history of adverse response to anesthesia No family history of bleeding disorder Thyroid cancer Denies family history of Heart disease Stroke Social History Smoking Status: Never smoker Tobacco Type: Cigarettes Second Hand Exposure: No; Do You Dip or Chew Tobacco: No; Hx Alcohol Use: Yes Alcohol type: beer Alcohol Intake Frequency Comment: 10 beers per week Hx Substance Use: No Preferred Language: Pashto Communication Ability: Effective Pot Washer Required: No Beliefs That Will Affect Care: None marital status: Current Living Situation: Spouse current occupational status: retired Feels Safe at Home: Yes Assistive Devices: CPAP Review of Systems Review of Systems: All systems reviewed & are unremarkable except as noted in HPI & below Physical Exam Physical Exam: General: patient resting comfortably, NAD, non-toxic in appearance, AA&O x 4 Skin: warm, dry, intact, no rashes or lesions HEENT: NC/AT, PERRL, EOMI, anicteric sclera, conjunctiva without injection, external ear normal to inspection and nontender, nares patent, moist mucus membranes, dentition intact, no oropharyngeal lesions, neck supple, trachea midline, no LAD, no thyromegaly, no JVD Heart: +S1/S2, regular, no m/r/g Lungs: equal air entry bilaterally, no rales/rhonchi/wheezes Abd: +BS, soft, NT/ND, no masses/organomegaly/ascites Ext: warm, 2+ pulses in UE/LE bilaterally, no clubbing/cyanosis or edema, palpable LAD right groin, non-tender Neuro: nonfocal, patient AA&O x 4, speech intact, no facial droop, moving all extremities on command with equal strength 5/5 Results & Data Results & Data Vital Signs (Past 12 Hours) Vital Signs Temp Pulse Pulse Resp BP BP Pulse Ox 04/18/25 19:42 47 L 16 95 04/18/25 19:30 48 L 20 98 04/18/25 19:12 47 L 16 96 04/18/25 19:00 49 L 17 132/67 97 04/18/25 18:20 52 L 97 04/18/25 18:12 56 L 15 119/70 94 04/18/25 17:42 59 L 18 141/76 H 93 04/18/25 17:09 56 L 19 97 04/18/25 17:09 60 04/18/25 17:02 59 L 15 147/97 H 97 04/18/25 16:51 36.2 C L 61 20 163/79 H 96 O2 Del Method 04/18/25 19:42 04/18/25 19:30 04/18/25 19:12 04/18/25 19:00 04/18/25 18:20 Room Air 04/18/25 18:12 04/18/25 17:42 04/18/25 17:09 04/18/25 17:09 04/18/25 17:02 Room Air 04/18/25 16:51 Room Air Laboratory Results Laboratory Results WBC 28.53 K/ul (4.8-10.8) H 04/18/25 18:00 RBC 3.60 M/uL (4.70-6.10) L 04/18/25 18:00 Hgb 11.7 g/dl (14.0-18.0) L 04/18/25 18:00 POC Hgb 12.2 g/dl (14.0-18.0) L 04/18/25 18:28 Hct 33.1 % (42.0-52.0) L 04/18/25 18:00 POC Hct 36 % (42-52) L 04/18/25 18:28 MCV 91.9 fL (80.0-100.0) 04/18/25 18:00 MCH 32.5 pg (25.0-34.0) 04/18/25 18:00 MCHC 35.3 g/dL (32.0-36.0) 04/18/25 18:00 RDW Std Deviation 46.7 fL (36.4-46.3) H 04/18/25 18:00 RDW Coeff of Harish 13.7 % (11.5-14.5) 04/18/25 18:00 Plt Count 99 K/uL (130-400) L 04/18/25 18:00 MPV 11.6 fL (9.4-12.4) 04/18/25 18:00 Neutrophils % (Manual) 70 % 04/18/25 18:00 Lymphocytes % (Manual) 7 % 04/18/25 18:00 Monocytes % (Manual) 7 % 04/18/25 18:00 Metamyelocytes % (Man) 7 % 04/18/25 18:00 Myelocytes % (Man) 8 % 04/18/25 18:00 Blast Cells % (Manual) 1 % 04/18/25 18:00 Neutrophils # (Manual) 19.97 K/uL (1.40-6.50) H 04/18/25 18:00 Total Absolute Neuts 19.97 K/uL (1.4-6.5) H 04/18/25 18:00 Lymphocytes # (Manual) 2.00 K/uL (1.2-3.4) 04/18/25 18:00 Total Abs Lymphocytes 2.00 K/uL (1.2-3.4) 04/18/25 18:00 Monocytes # (Manual) 2.00 K/uL (0.11-0.59) H 04/18/25 18:00 Metamyelocytes # (Man) 2.00 K/uL (0-0) H 04/18/25 18:00 Myelocytes # (Manual) 2.28 K/uL (0-0) H 04/18/25 18:00 Blast Cells # (Man) 0.29 K/uL (0-0) H 04/18/25 18:00 RBC Morphology Unremarkable 04/18/25 18:00 PT 11.9 Seconds (9.0-12.0) 04/18/25 18:00 INR 1.1 (0.9-1.1) 04/18/25 18:00 POC Sodium 138 mmol/L (135-144) 04/18/25 18:28 Sodium 135 mmol/L (136-145) L 04/18/25 18:00 POC Potassium 3.6 mmol/L (3.3-5.0) 04/18/25 18:28 Potassium 3.8 mmol/L (3.5-5.1) 04/18/25 18:00 POC Chloride 98 mmol/L (101-112) L 04/18/25 18:28 Chloride 101 mmol/L (98-107) 04/18/25 18:00 Carbon Dioxide 26 mmol/L (21-32) 04/18/25 18:00 POC Total CO2 24 mmol/L (24-31) 04/18/25 18:28 Anion Gap 8 (3-11) 04/18/25 18:00 POC Anion Gap 20.0 mmol/L (16-25) 04/18/25 18:28 POC BUN 14 mg/dl (7-18) 04/18/25 18:28 BUN 14 mg/dl (6-23) 04/18/25 18:00 Creatinine 0.84 mg/dl (0.6-1.4) 04/18/25 18:00 POC Creatinine 0.9 mg/dl (0.6-1.3) 04/18/25 18:28 Est Cr Clr Drug Dosing 77.2 ml/min 04/18/25 18:00 eGFR 91.51 04/18/25 18:00 BUN/Creatinine Ratio 16.7 (10-20) 04/18/25 18:00 Glucose 94 mg/dl (70-99(Fasting)) 04/18/25 18:00 POC Glucose (other) 92 mg/dl (70-99) 04/18/25 18:28 Lactate 1.5 mmol/L (0.4-2.0) 04/18/25 21:02 Calcium 9.4 mg/dl (8.6-10.3) 04/18/25 18:00 POC Ioniz Calcium Antonio 1.18 mmol/l (1.12-1.32) 04/18/25 18:28 Phosphorus 3.6 mg/dl (2.5-4.9) 04/18/25 18:00 Magnesium 1.7 mg/dl (1.7-2.4) 04/18/25 18:00 Total Bilirubin 0.4 mg/dl (0.2-1.0) 04/18/25 18:00 AST 24 U/L (13-39) 04/18/25 18:00 ALT 11 U/L (7-52) 04/18/25 18:00 Alkaline Phosphatase 117 U/L (34-104) H 04/18/25 18:00 Troponin I High Sens 17.6 pg/ml (0-20) 04/18/25 18:00 Total Protein 7.8 gm/dl (6.0-8.3) 04/18/25 18:00 Albumin 4.1 gm/dl (3.4-5.0) 04/18/25 18:00 Globulin 3.7 gm/dl (2.5-4.0) 04/18/25 18:00 Albumin/Globulin Ratio 1.1 (0.9-2) 04/18/25 18:00 Lipase 21 U/L (11-82) 04/18/25 18:00 Procalcitonin 0.07 ng/ml (0-0.5) 04/18/25 18:00 TSH 2.441 uIu/ml (0.300-4.500) 04/18/25 18:00 Urine Color Yellow 04/18/25 20:49 Urine Appearance Clear (Clear) 04/18/25 20:49 Urine pH 6.5 (4.5-7.5) 04/18/25 20:49 Ur Specific Sherwood 1.045 (1.000-1.030) H 04/18/25 20:49 Urine Protein Negative (Negative) 04/18/25 20:49 Urine Glucose (UA) Negative (Negative) 04/18/25 20:49 Urine Ketones 1+ (Negative) H 04/18/25 20:49 Urine Blood Trace (Negative) H 04/18/25 20:49 Urine Nitrite Negative (Negative) 04/18/25 20:49 Urine Bilirubin Negative (Negative) 04/18/25 20:49 Urine Urobilinogen Negative (Negative) 04/18/25 20:49 Ur Leukocyte Esterase Negative (Negative) 04/18/25 20:49 Urine WBC (Auto) 0-5 /hpf (0-5) 04/18/25 20:49 Urine RBC (Auto) 0-2 /hpf (0-2) 04/18/25 20:49 U Hyaline Cast (Auto) 0-2 /lpf (0-2) 04/18/25 20:49 U Epithel Cells (Auto) 0-2 /hpf (0-2) 04/18/25 20:49 Urine Bacteria (Auto) None Seen (None Seen) 04/18/25 20:49 Urine Comment 04/18/25 20:49 Impressions Chest X-Ray 04/18/25 17:19 Chest radiograph, one view History: Chest pain Comparison: None Findings: Single AP view of the chest performed. No focal consolidation or pleural effusion. No pneumothorax. The cardiomediastinal silhouette is within normal limits. Normal pulmonary vascularity. No evidence for lymphadenopathy. No visualized bony or soft tissue abnormality. Impression: Normal chest radiograph Electronically signed by Edwin Blanc 04-18-2025 6:56 PM Abdomen/Pelvis CT 04/18/25 17:21 EXAMINATION: CT of the abdomen and pelvis performed after the administration of IV contrast TECHNIQUE: Helical CT images from the lung bases through the symphysis pubis were obtained with contrast. Coronal and sagittal reformatted images were generated at a workstation for further assessment. Dose reduction techniques were achieved by using automatic exposure control and/or adjustment of mA and/or kV according to patient size and/or use of iterative reconstruction technique. COMPARISON: 03/29/2025 HISTORY: Abdominal pain FINDINGS: Lower chest: No consolidation. No pleural effusion or pneumothorax. Left lower lobe 7 mm nodule on image 9, and 6 mm nodule in the left lower lobe on image 27 are unchanged. Liver: The contrast-enhanced liver is normal in size, contour, and attenuation.The hepatic veins and portal veins are patent. There is a 12 mm right lobe hepatic cyst. Gallbladder: Unremarkable. Spleen: The spleen is enlarged measuring 16.5 cm in length. Pancreas: Unremarkable. Adrenal glands: Unremarkable. Kidneys: The contrast enhanced kidneys are normal in size and without hydronephrosis. The kidneys enhance symmetrically. Abdominal vasculature: The abdominal aorta is normal in course and caliber noting mild/moderate atherosclerotic calcification. Bowel: A large segment of the sigmoid colon is contained within a left inguinal hernia. There is large subsolid colonic fecal retention. No bowel obstruction is seen. Enteric contrast reaches the right colon. A segment of small bowel is contained within the right inguinal hernia. The appendix is well-visualized and normal. Peritoneum: There is no intraperitoneal free air or abdominal ascites. Lymph nodes: Mildly prominent, shotty appearing retroperitoneal, pelvic and inguinal lymph nodes are unchanged. Pelvic viscera: The prostate gland is mildly enlarged and heterogeneous. The bladder wall appears thickened/trabeculated indicating chronic outlet obstruction. There are left larger than right inguinal hernias. Both hernias contain segments of bowel. Skeletal structures: The skeletal structures are osteopenic. There is moderate lumbosacral spondylosis. S1 is a transitional lumbosacral segment. There are bilateral pars defects at L5 with 10 mm anterolisthesis of L5-S1. No lytic or blastic lesions are seen. Degenerative change is noted in the sacroiliac joints and pubic symphysis. IMPRESSION: Large, subsolid colonic stool burden suggestive of constipation. Bilateral inguinal hernias containing a bowel, similar to prior. No bowel obstruction. No change in 7 mm and 6 mm pulmonary nodules in the left lower lobe. Electronically signed by Edwin Blanc 04-18-2025 7:31 PM ECG Additional Comments: EKG with marked sinus bradycardia, HR of 42 bpm, DI=831, QRS=82, OJa=669, no acute ischemic changes Code Status & VTE Plan VTE Prophylaxis Plan VTE Prophylaxis will be ordered: Yes PG Care Time/CCT Total # of Minutes Spent Total Time Spent with Patient: Total time spent is greater than 50% in coordination of care (as documented) at patient's floor/unit and/or counseling patient: Coding Level of Care Code 81893 INT INP/OBS CARE 3/75MIN Diagnoses Myelodysplastic syndrome D46.9 Diarrhea R19.7 Bradycardia R00.1 Low back pain M54.50 Sleep apnea G47.30 Hyperlipidemia E78.5
[2025-04-18] MEDS ORDERED: REMOVE LIDODERM PATCH SCH (21:00)
[2025-04-18 21:14] LABS: Appearance Urine Clear (Clear); Bacteria Urine Automated None Seen (None Seen); Cast Urine Automated 0-2 /lpf (0-2); Epithelial Cell Urine Auto 0-2 /hpf (0-2); Glucose Urine UA Negative (Negative); RBC Urine Automated 0-2 /hpf (0-2); WBC Urine Automated 0-5 /hpf (0-5)
[2025-04-18] MEDS: MoRPHine SULFATE 2 MG/ML CARP IV STA (21:56)
[2025-04-18] MEDS ORDERED: ONDANSETRON INJ 2 MG/ML 2 ML VIAL IV PRN (22:32)
[2025-04-18] MEDS: POTASSIUM CHLORIDE 10 MEQ TABCR PO STA (22:50)
[2025-04-18] MEDS: POLYETHYLENE (MIRALAX) 17 GM PACK PO SCH (22:52)
[2025-04-18] MEDS: LACTATED RINGER'S 1,000 ML IV SCH (22:53)
[2025-04-18] MEDS: MAGNESIUM SULFATE / D5W 1 GM/100 ML BAG IV SCH (22:55)
[2025-04-19] MEDS ORDERED: FLUTICASONE PROPIONATE NA SPR 16 GM BTL PRN (00:29)
[2025-04-19] MEDS: MoRPHine SULFATE 4 MG/ML 1 ML CARP\\VIAL IV PRN (00:30)
[2025-04-19] MEDS: ENOXAPARIN INJ 40 MG/0.4 ML SYR SQ SCH (01:18)
[2025-04-19] MEDS: FLUCONAZOLE 100 MG TAB PO STA (03:59)
[2025-04-19] MEDS: ACYCLOVIR 400 MG TAB PO ONE (04:00)
[2025-04-19] MEDS: CEFDINIR 300 MG CAP PO STA (04:00)
[2025-04-19] MEDS: ACETAMINOPHEN 325 MG TAB PO PRN (05:07)
[2025-04-19] MEDS: REMOVE LIDODERM PATCH ONE (06:34)
--- NOTE | 2025-04-19 07:21 | Hospitalist Progress Note ---
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; per pathologist interpretation of peripheral blood smear obtained from initial presentation, they suggest this is more consistent with a recent G-CSF administration or reactive leukocytosis, the latter of which is more consistent with the patient's clinical presentation; most likely consequence of the large stool stool burden in the ascending colon and hepatic flexure without evidence of stercoral colitis at this time - Hematology/Oncology consulted - Continue suppressive bacterial, viral, and fungal therapies #Encopresis with constipation and overflow incontinence Consistent with the patient's presentation and evidenced by CT imaging; very proximal in the colon, little benefit of pursuing [place] treatments or enemas - Encourage regular ambulation to facilitate peristalsis - Start Miralax 34 mg p.o. TID - Start bisacodyl 5 mg p.o. at bedtime Admission and Anticipated Discharge Date Admission Date: April 18, 2025 Results & Data Results & Data Vital Signs (Past 12 Hours) Vital Signs Temp Pulse Pulse Resp BP BP Pulse Ox 04/19/25 03:41 04/19/25 03:41 36.8 C 45 L 16 110/62 95 04/19/25 02:54 45 L 04/19/25 01:42 46 L 15 04/19/25 01:30 48 L 12 04/19/25 01:26 47 L 04/19/25 01:21 50 L 16 04/19/25 01:12 46 L 16 94 04/19/25 01:00 117/58 L 04/19/25 01:00 117/58 L 04/19/25 01:00 117/58 L 04/19/25 01:00 117/58 L 04/19/25 01:00 117/58 L 04/19/25 01:00 50 L 16 94 04/19/25 00:51 47 L 18 04/19/25 00:42 45 L 19 04/19/25 00:30 43 L 15 04/19/25 00:21 45 L 17 04/19/25 00:12 41 L 17 04/19/25 00:00 101/60 04/19/25 00:00 101/60 04/19/25 00:00 101/60 04/19/25 00:00 101/60 04/19/25 00:00 44 L 13 04/18/25 23:51 42 L 18 04/18/25 23:42 43 L 17 04/18/25 23:30 45 L 17 04/18/25 23:21 46 L 16 04/18/25 23:12 45 L 15 04/18/25 23:00 122/59 L 04/18/25 23:00 122/59 L 04/18/25 23:00 122/59 L 04/18/25 23:00 122/59 L 04/18/25 22:30 45 L 14 119/60 96 04/18/25 21:47 132/68 04/18/25 21:45 47 L 20 132/68 96 04/18/25 21:12 46 L 04/18/25 21:00 49 L 20 97 04/18/25 20:00 45 L 11 L 119/70 95 04/18/25 19:42 47 L 16 95 04/18/25 19:30 48 L 20 98 O2 Del Method 04/19/25 03:41 Room Air 04/19/25 03:41 Room Air 04/19/25 02:54 04/19/25 01:42 04/19/25 01:30 04/19/25 01:26 04/19/25 01:21 04/19/25 01:12 04/19/25 01:00 04/19/25 01:00 04/19/25 01:00 04/19/25 01:00 04/19/25 01:00 04/19/25 01:00 04/19/25 00:51 04/19/25 00:42 04/19/25 00:30 04/19/25 00:21 04/19/25 00:12 04/19/25 00:00 04/19/25 00:00 04/19/25 00:00 04/19/25 00:00 04/19/25 00:00 04/18/25 23:51 04/18/25 23:42 04/18/25 23:30 04/18/25 23:21 04/18/25 23:12 04/18/25 23:00 04/18/25 23:00 04/18/25 23:00 04/18/25 23:00 04/18/25 22:30 04/18/25 21:47 04/18/25 21:45 04/18/25 21:12 04/18/25 21:00 04/18/25 20:00 04/18/25 19:42 04/18/25 19:30 PG Care Time/CCT Total # of Minutes Spent Total Time Spent with Patient: Total time spent is greater than 50% in coordination of care (as documented) at patient's floor/unit and/or counseling patient: Coding Level of Care Code 29568 SUB INP/OBS CARE 2/35MIN Diagnoses Myelodysplastic syndrome D46.9 Neutrophilic leukocytosis D72.828 Encopresis with constipation and overflow incontinence R15.9
[2025-04-19 10:03] LABS: Hematocrit (blood only) 31.1 % (42.0-52.0); Hemoglobin 11.1 g/dl (14.0-18.0); Mean Corpuscular Hemoglobin 32.6 pg (25.0-34.0); Mean Corpuscular Volume 91.2 fL (80.0-100.0); Platelet Count 97 K/uL (130-400); RDW Standard Deviation 45.6 fL (36.4-46.3); Red Blood Count 3.41 M/uL (4.70-6.10); White Blood Count 21.30 K/ul (4.8-10.8)
[2025-04-19 10:05] LABS: ALC (manual) 1.28 K/uL (1.2-3.4); ANC (manual) 15.98 K/uL (1.4-6.5); RBC Morphology Unremarkable
[2025-04-19] MEDS: ACYCLOVIR 400 MG TAB PO SCH (10:27)
[2025-04-19] MEDS: ATORVASTATIN 10 MG TAB PO SCH (10:27)
[2025-04-19 10:31] LABS: Albumin Level 3.4 gm/dl (3.4-5.0); Anion Gap 6.0 (3-11); Bilirubin,Total 0.3 mg/dl (0.2-1.0); Calcium 8.4 mg/dl (8.6-10.3); Carbon Dioxide 26.0 mmol/L (21-32); Chloride 104.0 mmol/L (98-107); Potassium 3.9 mmol/L (3.5-5.1); Sodium 136.0 mmol/L (136-145)
[2025-04-19] MEDS: DOCUSATE SODIUM/SENNA 50/8.6MG TAB PO SCH (10:36)
[2025-04-19 10:37] LABS: Alanine Aminotransferase 10.0 U/L (7-52); Alkaline Phosphatase 106.0 U/L (34-104); Blood Urea Nitrogen 10.0 mg/dl (6-23); Creatinine Clr Calc Pharmacy 72.0 ml/min; Glucose 84.0 mg/dl (70-99(Fasting)); Total Protein 6.5 gm/dl (6.0-8.3)
[2025-04-19] MEDS: CEFDINIR 300 MG CAP PO SCH (10:52)
[2025-04-19 12:15] LABS: Cdiff Toxin B Gene (2yr or >) Negative Cdiff Gene (Neg)
[2025-04-19 12:46] LABS: Adenovirus F 40/41 PCR Not Detected (NotDetected); Campylobacter PCR Not Detected (NotDetected); Enteroaggregative E.coli(EAEC) Not Detected (NotDetected); Shiga-like Toxin E.coli (STEC) Not Detected (NotDetected); Vibrio species PCR Not Detected (NotDetected)
[2025-04-19] MEDS: POLYETHYLENE (MIRALAX) 17 GM PACK PO SCH (14:21)
--- NOTE | 2025-04-19 15:30 | Oncology Consultation ---
Date of Consultation April 19, 2025 Assessment & Plan (1) Myelodysplastic syndrome: Hematologically speaking, at this point no active intervention is warranted as the patient has active norovirus infection. At this point my recommendation is going to be watchful waiting. The patient does have a history of inguinal hernia, that would need to be waited in my opinion till he recovers from the current treatment. Plan Thank you for this interesting hematological consult. Hematology will continue to follow the patient make appropriate recommendations. History of Present Illness Reason for Consultation: normal cytopenia of uncertain significance myelodysplastic syndrome possible blasts neutropenia Attending Physician: See Haddad DO History of Present Illness The patient is a very pleasant 73-year-old man who comes to the hematology clinic for evaluation of thrombocytopenia. He was in the ER on 01/22/2024 with fatigue, weakness, hypoxia. [place] that [place] and was diagnosed with COVID-19. He was diagnosed with COVID-19 on January 18, 2024 sub sequently started Paxlovid. He had blood work performed on 01/22/2024 which revealed WBC count of 2.22, hemoglobin of 13.1 g/dL, platelet count of 66,000/mcL. He comes to hematology for evaluation of thrombocytopenia. Since then the patient had a CBC performed on February 03, 2024, which revealed a WBC count of 2.99, hemoglobin of 12.8, hematocrit of 37.1 and a platelet count of 199/mcL. He is currently feeling much better. His leukopenia was predominantly lymphocytopenia in nature. He reports no active bleeding or bruising. He has symptoms have improved a lot since he was in the ER. 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 This patient has unexplained pancytopenia, no morphologic evidence of dysplasia, and mutations in ZRSR2 and TET2 which qualifies as CCUS. The flow cytometry pattern is also very characteristic of MDS. Eighty percent (80%) of patients with CCUS develop a myeloid neoplasm in 5 years and 95% in 10 years. These findings should be considered a form of pre/evolving MDS and appropriate follow- up should be undertaken. eventually the patient was started on growth factors, G-CSF. However he did not respond. He has a hernia, the patient was not able to get surgery for hernia given the significant neutropenia. He is currently admitted to the hospital with recurrent diarrhea as well as norovirus infection. Hematology has been consulted for this patient who has clonal cytopenia of uncertain significance, now has leukocytosis because of norovirus infection. Allergies Allergy/AdvReac Type Severity Reaction Status Date / Time No Known Drug Allergies Allergy Unknown Unknown Verified 03/09/25 12:33 Home Medications Medication Instructions Recorded Confirmed Type atorvastatin 10 mg tablet (Lipitor) 10 mg PO DIRECTED 05/01/22 04/18/25 History acyclovir 400 mg tablet 400 mg PO BID 02/10/25 04/19/25 History fluconazole 200 mg tablet 200 mg PO QPM 02/10/25 04/19/25 History fluticasone propionate 50 1 spray intranasal DAILY PRN prn 02/10/25 04/18/25 History mcg/actuation nasal spray,suspension (Flonase Allergy Relief) cefdinir 300 mg capsule 300 mg PO BID 02/11/25 04/19/25 History Patient History Medical History (Updated 04/19/25 @ 16:50 by Jermaine Espinal MD) Frequent urination at night Sensorineural hearing loss (SNHL) of both ears History of COVID-19 2023-resolved Allergic rhinitis 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 Pt never had symptoms, but was told in the past he had a stroke. Surgical History History of bone marrow biopsy (05/2024) [facility], patient is following with Dr Gomez Correa, low platelet, and low white blood cell count, currently on acyclovir, fluconazole and cefdinir prophylactically per heme (could not tolerate levofloxacin) History of nasal septoplasty with bilateral inferior turbinate reduction-09/18/23-Dr. Palacios Hx of oral surgery dental implants History of knee replacement right History of colonoscopy History of carpal tunnel release L History of thumb surgery S/P ACCIDENT Status post excision of lipoma History of herniorrhaphy History of tonsillectomy Family History Family/Other Asthma Father Cancer Hypertension Allergies Intestinal cancer Brother Cancer Hypertension Intestinal cancer Other Esophageal cancer No family history of adverse response to anesthesia No family history of bleeding disorder Thyroid cancer Denies family history of Heart disease Stroke Social History Smoking Status: Former smoker Tobacco Type: Cigarettes Second Hand Exposure: No; Do You Dip or Chew Tobacco: No; Hx Alcohol Use: Yes Alcohol type: beer Alcohol Intake Frequency Comment: 10 beers per week Hx Substance Use: No Preferred Language: Israeli Communication Ability: Effective Director Of Catering Required: No Beliefs That Will Affect Care: None marital status: Current Living Situation: Spouse current occupational status: retired Other Information That Helps Us Care for You: No Feels Safe at Home: Yes Safety Concerns: Feels Safe At This Time Assistive Devices: CPAP Review of Systems Review of Systems: All systems reviewed & are unremarkable except as noted in HPI & below Constitutional: as per Subjective / HPI Eyes: as per Subjective / HPI Ear, Nose, Mouth, Throat: as per Subjective / HPI Respiratory: as per Subjective / HPI Cardiovascular: as per Subjective / HPI Gastrointestinal: as per Subjective / HPI Genitourinary: + as per Subjective / HPI Musculoskeletal: as per Subjective / HPI Integumentary: as per Subjective / HPI Neurologic: as per Subjective / HPI Psychiatric: as per Subjective / HPI Endocrine: as per Subjective / HPI Hematologic / Lymphatic: as per Subjective / HPI Allergy / Immunological: as per Subjective / HPI Physical Exam Constitutional: WD/WN, vitals as above Eyes: PERRL, conjunctivae normal, anicteric sclerae ENMT: external ear and nose normal, oropharynx normal Neck: trachea midline, no thyromegaly Respiratory: normal respiratory effort, lungs clear to auscultation Cardiovascular: RRR, no murmur, no edema Gastrointestinal (Abdomen): normal bowel sounds, soft, nontender, no hepatosplenomegaly Musculoskeletal: no cyanosis or clubbing, extremities motor strength 5/5 Skin: no rashes, warm and dry Neurologic: patellar DTR's 2+ bilat, sensation intact Psychiatric: A+Ox3, euthymic affect Results & Data Vital Signs (Past 12 Hours) Vital Signs Temp Pulse Pulse Resp BP Pulse Ox O2 Del Method 04/19/25 15:19 36.6 C 70 16 109/66 93 Room Air 04/19/25 15:18 36.6 C 47 L 16 123/67 96 Room Air 04/19/25 11:50 Room Air 04/19/25 11:16 36.5 C 51 L 16 108/62 97 Room Air 04/19/25 07:46 36.3 C L 46 L 16 104/59 L 97 Room Air 04/19/25 07:27 47 L 04/19/25 03:41 Room Air 04/19/25 03:41 36.8 C 45 L 16 110/62 95 Room Air
[2025-04-19] MEDS: FLUCONAZOLE 100 MG TAB PO SCH (21:00)
--- NOTE | 2025-04-20 07:24 | Hospitalist Progress Note ---
Date of Service April 20, 2025 Assessment & Plan (1) Myelodysplastic syndrome: (2) Neutrophilic leukocytosis: (3) Encopresis with constipation and overflow incontinence: Plan In summary this is a 74-year-old male who presented with persistent diarrhea, subsequently admitted for continued observation #Neutrophilic leukocytosis with blast cells in the setting of MDS Remains with significant leukocytosis however again, pathology review does not suggest any kind of acute conversion to leukemia; unclear why the patient is having such a robust inflammatory response to his ongoing norovirus and constipation; there is nothing on exam nor additional laboratory assessment outside of their white blood cell count that is suggestive of an ongoing infectious process - Hematology/Oncology consulted - Continue suppressive bacterial, viral, and fungal therapies #Encopresis with constipation and overflow incontinence Consistent with the patient's presentation and evidenced by CT imaging; superimposed norovirus with stool pcr testing - Encourage regular ambulation to facilitate peristalsis - Continue Miralax 34 mg p.o. TID - Continue bisacodyl 5 mg p.o. at bedtime Discussed plan of care with patient and spouse at bedside; requested continued hospitalization through morning of 04/21 with reassessment of CBC, anticipate discharge if status continues to improve with close outpatient follow up with PCP and Hematology/Oncology Admission and Anticipated Discharge Date Admission Date: April 18, 2025 Subjective Mr. Gilliland is a 74-year-old male whose active medical conditions include MDS presented to the [facility] due to persistent diarrhea and subsequently admitted for continued observation due to significant neutrophilic leukocytosis. No acute overnight events; passing more frequent stool today without difficulty Review of Systems Review of Systems: Review of constitutional, pulmonary, cardiovascular, gastrointestinal systems was unremarkable Physical Exam Physical Exam: General: Adult male in no acute distress Vital Signs: Reviewed HEENT: Moist membranes Pulmonary: Symmetric chest wall excursion without restriction; clear to auscultation bilaterally Cardiovascular: Regular rate and rhythm without murmurs, rubs, or gallops; S1 and S2 normal Gastrointestinal: Protuberant, soft; normal frequency and pitch of bowel sounds throughout; palpable left inguinal hernia without tenderness to palpation, unable to be reduced Results & Data Results & Data Vital Signs (Past 12 Hours) Vital Signs Temp Pulse Pulse Resp BP Pulse Ox O2 Del Method 04/20/25 03:01 36.4 C L 45 L 18 123/67 96 Room Air 04/19/25 23:25 54 L 04/19/25 23:17 36.7 C 43 L 18 120/62 96 Room Air 04/19/25 19:30 37.0 C 46 L 18 129/60 97 Room Air PG Care Time/CCT Total # of Minutes Spent Total Time Spent with Patient: Total time spent is greater than 50% in coordination of care (as documented) at patient's floor/unit and/or counseling patient: Coding Level of Care Code 18059 SUB INP/OBS CARE 35MIN Diagnoses Myelodysplastic syndrome D46.9 Neutrophilic leukocytosis D72.828 Encopresis with constipation and overflow incontinence R15.9
[2025-04-20 08:00] LABS: ALC (manual) 2.57 K/uL (1.2-3.4); ANC (manual) 24.11 K/uL (1.4-6.5); Dohle Bodies 1+; Hematocrit (blood only) 33.1 % (42.0-52.0); Hemoglobin 11.6 g/dl (14.0-18.0); Mean Corpuscular Hemoglobin 32.0 pg (25.0-34.0); Mean Corpuscular Volume 91.4 fL (80.0-100.0); Platelet Count 95 K/uL (130-400); RDW Standard Deviation 47.3 fL (36.4-46.3); Red Blood Count 3.62 M/uL (4.70-6.10); Tear Drop Cells 1+; White Blood Count 32.14 K/ul (4.8-10.8)
[2025-04-21 03:25] VITALS: TEMP 97.9
[2025-04-21 08:24] LABS: ALC (manual) 2.59 K/uL (1.2-3.4); ANC (manual) 25.87 K/uL (1.4-6.5); Hematocrit (blood only) 32.1 % (42.0-52.0); Hemoglobin 11.4 g/dL (14.0-18.0); Mean Corpuscular Hemoglobin 32.4 pg (25.0-34.0); Mean Corpuscular Volume 91.2 fL (80.0-100.0); Platelet Count 87 K/uL (130-400); Polychromasia 1+; RDW Standard Deviation 46.9 fL (36.4-46.3); Red Blood Count 3.52 M/uL (4.70-6.10); Tear Drop Cells 1+
[2025-04-21 08:31] LABS: White Blood Count 36.96 K/ul (4.8-10.8)
[2025-04-21 11:36] VITALS: BP 143/72; PULSE 53; RESP 20; O2SAT 97
--- NOTE | 2025-04-21 19:33 | Discharge Summary ---
Discharge Summary Date of Service April 21, 2025 Principal Dx & Hospital Course #1 = Principal Diagnosis (1) Myelodysplastic syndrome: (2) Neutrophilic leukocytosis: (3) Gastroenteritis due to norovirus: (4) Sleep apnea in adult: Plan In summary this is a 74-year-old male who presented with persistent diarrhea, leukocytosis # norovirus gastroenteritis - resolving. Having loose stool still but low volume and maintaining good po. Abdominal pain and distention resolved. Now just crampy relieved by BMs # myelodysplastic syndrome, leukemoid reaction having exhuberant leukocytosis and initially blast cells. his oncologist consulted. no evidence of leukemia, rather, reactive to norovirus infection. Discussed with Dr. Correa - his upcoming bone marrow biopsy and LN biopsy will be delayed until acute illness resolved. Follow up with Dr. Correa, ideally repeat CBC next week Admission HPI Per Admitting Provider Nayan Gilliland is a 74yo male with history of Myelodysplastic Syndrome on Pegfilgrastim injections (FULPHILA) - last injection 3 weeks ago, Acyclovir, Cefdinir and Fluconazole for chronic suppressive therapy presenting with ab dominal distention, bloating and diarrhea over the last 4 days. Patient reports passing watery, non-bloody bowel movements over the last 4 days. Some abdominal distention and bloating. No nausea, vomiting. No fever but has had some chills. Patient is scheduled to have a repeat bone marrow biopsy and possible lymph node biopsy to be performed on 04/27/25. He had a CT scan performed 03/29/25 which revealed several prominent to mildly enlarged axillary, mediastinal, abdominal, pelvic and inguinal lymph nodes as well as splenomegaly. In the ER patient is afebrile, bradycardia ER Course: Tylenol 1gm NSS x 1L Lidoderm patch [id number] Miralax 17gm Discharge Exam Last 24h vitals reviewed GEN: no acute distress, up ambulatory in room HEENT: pupils equal, sclerae anicteric, moist MM RESP: normal WOB, CTAB CV: reg no mrg ABD: soft/nt/nd +BT : no recio SKIN: warm and dry, no generalized rashes NEURO: AOx person, place, and situation. Face symmetric, speech normal, moves 4 ext spontaneously and equally Discharge Plan Discharge Items Patient Disposition: Home - Self-Care Reason For Visit: ABDOMINAL PAIN Discharge Diagnosis: norovirus gastroenteritis Condition on Discharge: Good Activity: Resume your previous activity Non-emergency contact: Primary Care Provider and Oncologist Call non-emergency contact if: you have any medication questions and your symptoms worsen Follow-up/Referrals: Fredrick Correa MD [Physician] - Millicent Vargas DO [Primary Care Provider] - Diet: Regular Addtl Attending Provider Instructions: You have diarrhea from norovirus This seems to be settling down. You'll probably have some loose stools for up to a week but they should be fairly small stools by now Its ok to take Imodium (over the counter) to slow down your diarrhea, but don't take so much that you get constipated from it I spoke with Dr. Correa today and he advised holding off on the bone marrow biopsy and lymph node biopsy for now, since they could be affected by the virus. Call Dr. Correa's office and schedule follow up and blood work in 1-2 weeks so that he can tell when the effect of the virus has resolved Norovirus is highly contagious, so make sure to wash your hands frequently Drink plenty of fluids Follow a bland diet until your bowel habits return to normal. Avoid high fiber like salad/raw vegetables for now because it will probably exacerbate the diarrhea. Yogurt is fine. It was a pleasure taking care of you in the hospital, Clara Patel MD Pending Studies at Discharge: No Stand-Alone Forms: My [facility], Smoking Cessation Medications and DC Order Prescriptions: Continued atorvastatin [Lipitor] 10 mg tablet 10 mg PO DIRECTED Patient Comments: Pt states he is taking 10mg M/W/F Rx Instructions: Every other day. Mon, Wed, Fri. fluconazole 200 mg Tablet 200 mg PO QPM acyclovir 400 mg tablet 400 mg PO BID fluticasone propionate [Flonase Allergy Relief] 50 mcg/actuation spray,suspension 1 spray intranasal DAILY PRN (Reason: prn) Rx Instructions: administer into each nostril cefdinir 300 mg Capsule 300 mg PO BID Patient Comments: new rx>takes as a preventative Discharge Orders: Discharge Order (Routine); Ordered 04/21/25 Ordered By: Clara Gonzalez/Other Patient Handouts: Acyclovir Oral Tablet Admission Data Admit Date/Time: 04/18/25 20:57 Attending Provider: Clara Patel Admit Provider: Susu Angelo Primary Care Provider: Millicent Vargas. Other Providers: Susu Angelo; Fredrick Correa Other Interventions: Discharge Summary Assessment (RN) Last Done: 04/21/25 13:01 Hospital Stay Data Consultations 04/18/25 20:00 ED Decision to Admit Stat 04/19/25 07:22 Consult Oncology Stat Diagnostic Imagining Performed 04/18/25 17:21 CT abd pelvis IV con only Stat Pending Results Patient Have Any Pending Studies at Discharge: No Discharge Instructions Given to Patient (Per Discharging Provider) You have diarrhea from norovirus This seems to be settling down. You'll probably have some loose stools for up to a week but they should be fairly small stools by now Its ok to take Imodium (over the counter) to slow down your diarrhea, but don't take so much that you get constipated from it I spoke with Dr. Correa today and he advised holding off on the bone marrow biopsy and lymph node biopsy for now, since they could be affected by the virus. Call Dr. Correa's office and schedule follow up and blood work in 1-2 weeks so that he can tell when the effect of the virus has resolved Norovirus is highly contagious, so make sure to wash your hands frequently Drink plenty of fluids Follow a bland diet until your bowel habits return to normal. Avoid high fiber like salad/raw vegetables for now because it will probably exacerbate the diarrhea. Yogurt is fine. It was a pleasure taking care of you in the hospital, Clara Patel MD Total Time Total Time Spent Total Time Spent (In Minutes): I personally spent: 35 minutes today on clinical care activities including: reviewing chart notes and vital signs reviewing labs discussion with strategy execution consultant(s) examining and counseling the patient writing prescriptions, discharge instructions documentation Coding Level of Care Code 97283 INP/OBS DISCH >30 MIN Diagnoses Myelodysplastic syndrome D46.9 Neutrophilic leukocytosis D72.828 Gastroenteritis due to norovirus A08.11 Sleep apnea in adult G47.30
--- NOTE | 2025-04-22 13:37 | Electrocardiogram Report ---
Test Reason : Blood Pressure : */* mmHG Vent. Rate : 55 BPM Atrial Rate : 55 BPM P-R Int : 230 ms QRS Dur : 88 ms QT Int : 426 ms P-R-T Axes : 87 35 43 degrees QTcB Int : 407 ms Sinus bradycardia with marked sinus arrhythmia with 1st degree A-V block Premature atrial complexes Abnormal ECG When compared with ECG of 22-Jan-2024 18:35, Vent. rate has decreased by 34 bpm Confirmed by Jhon Arechiga ([id number]) on 04/22/2025 1:37:33 PM Referred By: REFERRED SELF Confirmed By: Jhon Arechiga
--- NOTE | 2025-04-22 16:09 | Electrocardiogram Report ---
Test Reason : Blood Pressure : */* mmHG Vent. Rate : 42 BPM Atrial Rate : 42 BPM P-R Int : 228 ms QRS Dur : 82 ms QT Int : 456 ms P-R-T Axes : 44 37 34 degrees QTcB Int : 380 ms Marked sinus bradycardia with sinus arrhythmia with 1st degree A-V block Abnormal ECG When compared with ECG of 18-Apr-2025 17:48, No significant change was found Confirmed by Jhon Arechiga ([id number]) on 04/22/2025 4:08:55 PM Referred By: REFERRED SELF Confirmed By: Jhon Arechiga
== END 2025-04-21 13:25 | disposition home or self-care (01) | DRG 392 ==
LOC: ED 16:46 → EDINP 20:57 → SUATTDRO 20:57 → 2N 22:32 → 2W 04-19 19:33

== ENCOUNTER 2025-05-21 13:25 | Inpatient (IN) ==
[2025-05-21 15:29] LABS: Alanine Aminotransferase 13.0 U/L (7-52); Albumin Globulin Ratio 1.0 (0.9-2); Albumin Level 4.0 gm/dl (3.4-5.0); Alkaline Phosphatase 76.0 U/L (34-104); Anion Gap 3.0 (3-11); Bilirubin,Total 0.5 mg/dl (0.2-1.0); Blood Urea Nitrogen 14.0 mg/dl (6-23); Calcium 8.9 mg/dl (8.6-10.3); Carbon Dioxide 27.0 mmol/L (21-32); Chloride 96.0 mmol/L (98-107); Creatinine Clr Calc Pharmacy 93.9 ml/min; Globulin 4.0 gm/dl (2.5-4.0); Glucose 108.0 mg/dl (70-99(Fasting)); Lipase 44.0 U/L (11-82); Potassium 4.4 mmol/L (3.5-5.1); Sodium 126.0 mmol/L (136-145); Total Protein 8.0 gm/dl (6.0-8.3)
[2025-05-21 15:43] LABS: Hematocrit (blood only) 33.1 % (42.0-52.0); Hemoglobin 11.8 g/dL (14.0-18.0); Mean Corpuscular Hemoglobin 31.7 pg (25.0-34.0); Mean Corpuscular Volume 89.0 fL (80.0-100.0); Platelet Count 62 K/uL (130-400); RDW Standard Deviation 44.3 fL (36.4-46.3); Red Blood Count 3.72 M/uL (4.70-6.10); White Blood Count 1.01 K/ul (4.8-10.8)
[2025-05-21] MEDS: SODIUM CHLORIDE 0.9% 1,000 ML IV ONE (16:06)
[2025-05-21 16:28] LABS: ALC (manual) 0.69 K/uL (1.2-3.4); ANC (manual) 0.06 K/uL (1.4-6.5); Large Granular Lymph # (manua 0.45 K/uL; Large Granular Lymph % (manual) 45 %; Tear Drop Cells 1+
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
[2025-05-21] MEDS ORDERED: ALUMINUM/MAGNESIUM SUSP 30 ML UDC PO PRN (20:38)
[2025-05-21] MEDS ORDERED: FLUTICASONE PROPIONATE NA SPR 16 GM BTL PRN (20:38)
[2025-05-21] MEDS ORDERED: MELATONIN 3 MG TAB PO PRN (20:38)
[2025-05-21] MEDS ORDERED: ONDANSETRON INJ 2 MG/ML 2 ML VIAL IV PRN (20:38)
[2025-05-21] MEDS ORDERED: POLYETHYLENE (MIRALAX) 17 GM PACK PO PRN (20:38)
[2025-05-21] MEDS: OPTIRAY 320 100ml IV ONE (21:23)
[2025-05-21 21:39] LABS: Anion Gap 4.0 (3-11); Blood Urea Nitrogen 12.0 mg/dl (6-23); Calcium 8.4 mg/dl (8.6-10.3); Carbon Dioxide 26.0 mmol/L (21-32); Chloride 97.0 mmol/L (98-107); Creatinine Clr Calc Pharmacy 101.3 ml/min; Potassium 3.9 mmol/L (3.5-5.1); Sodium 127.0 mmol/L (136-145)
[2025-05-21] MEDS: ACYCLOVIR 400 MG TAB PO SCH (22:08)
[2025-05-21] MEDS: LACTATED RINGER'S 1,000 ML IV SCH (22:08)
[2025-05-21] MEDS: CEFDINIR 300 MG CAP PO SCH (22:09)
[2025-05-21] MEDS: FLUCONAZOLE 100 MG TAB PO SCH (22:09)
[2025-05-21] MEDS: FAMOTIDINE 20 MG TAB PO SCH (22:11)
--- NOTE | 2025-05-21 22:57 | CT Scan Report ---
Exam(s): CT ABDOMEN + PELVIS With Contrast IV Amt: 90 ml optiray 320 EXAM: CT Abdomen and Pelvis With Intravenous Contrast CLINICAL HISTORY: Reason for exam: LLQ pain. TECHNIQUE: Axial computed tomography images of the abdomen and pelvis with intravenous contrast. CTDI is 16.68 mGy and DLP is 129.96 mGy-cm. Automated exposure control was utilized for the study. A dose lowering technique was utilized adhering to the principles of ALARA. CONTRAST: Patient received 90 ml optiray 320 of IV contrast COMPARISON: CT 04/18/2025 FINDINGS: ABDOMEN: Liver: A few subcentimeter cysts within the liver. Gallbladder and bile ducts: Unremarkable. Pancreas: Unremarkable. Spleen: Unremarkable. Adrenals: Unremarkable. Kidneys and ureters: Unremarkable. No obstructing stones. No hydronephrosis. Stomach and bowel: Left inguinal hernia containing nonobstructed sigmoid colon. No strangulation. No obstruction. PELVIS: Appendix: No findings to suggest acute appendicitis. Bladder: Unremarkable. Reproductive: Unremarkable as visualized. ABDOMEN and PELVIS: Intraperitoneal space: Unremarkable. No free air. No significant fluid collection. Bones/joints: Severe degenerative changes at the pubic symphysis. Severe degenerative changes in the lumbar spine. 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 Anterolisthesis at L4-5. Soft tissues: See above. Vasculature: Aorto bi-iliac atherosclerotic calcifications. Lymph nodes: Unremarkable. IMPRESSION: Left inguinal hernia containing nonobstructed sigmoid colon. No strangulation. No obstruction. Electronically signed by: Fredrick Frye MD 05/21/25 22:56 PM
[2025-05-22 07:02] VITALS: BP 133/75; PULSE 61; RESP 16; TEMP 97.5; O2SAT 97
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
[2025-05-22] MEDS: ACETAMINOPHEN 325 MG TAB PO PRN (11:03)
--- NOTE | 2025-05-22 11:50 | Hospitalist Progress Note ---
Date of Service May 22, 2025 Assessment & Plan (1) Gastroenteritis: (2) Left lower quadrant abdominal pain: (3) Myelodysplastic syndrome: (4) Hyponatremia: (5) Weakness: (6) Pancytopenia: Plan 74yo gentleman with PMH of MDS and remote history of stroke who presented to the ED with a one day history of abdominal "uneasiness", gas, loose stools, and abdominal pain. Of note, pt was managed for norovirus gastroenteritis about 3-4 weeks ago and states his symptoms have been waxing and waning since that time. He was noted to have hyponatremia and pancytopenia on admission. He will be admitted and managed for gastroenteritis, hyponatremia, and pancytopenia. #Gastroenteritis -CT abd/pelvis notable for left inguinal hernia without signs of strangulation -s/p IV maintenance fluids -encourage PO intake -Famotidine 20mg bid #LLQ Pain secondary to left inguinal hernia -f/u with general surgery #Hypovolemic Hyponatremia Na 126->127->, pt asx urine OSM 556 pre and 271 post fluids, urine Na 78 pre and 67 post fluids -encourage PO intake -follow up as outpatient #Pancytopenia #Myelodysplastic Syndrome WBC 1.01, Hb 11.8, Plat 62 -Hematology on board, appreciate recs -follow up as outpatient -continue home antiviral, antibiotic, and antifungal #Remote history of Stroke -resume home statin -consider antiplatelet therapy for secondary prevention Admission and Anticipated Discharge Date Admission Date: May 21, 2025 Review of Systems Review of Systems: per HPI Physical Exam Physical Exam: GA: well groomed, well nourished in no apparent distress. AAOx3 HEENT: head normocephalic, atraumatic. EOMI RESP: vesicular breath sounds b/l. No wheezes, rhonchi, or rales CARDIOVASCULAR: S1 and S2 heard. No murmurs, rubs, or gallops. Radial pulses 2+ b/l RRR GI: Normoactive bowel sounds, no tenderness or masses felt to palpation MSK: no gross abnormalities or focal deficits SKIN: warm, dry, no edema PSYCH: appropriate mood and affect NEURO: no focal deficits. speech fluent Results & Data Results & Data Vital Signs (Past 12 Hours) Vital Signs Temp Pulse Resp BP Pulse Ox O2 Del Method 05/22/25 07:01 36.4 C L 61 16 133/75 97 Room Air
[2025-05-22 12:06] LABS: Hematocrit (blood only) 31.0 % (42.0-52.0); Hemoglobin 11.1 g/dL (14.0-18.0); Mean Corpuscular Hemoglobin 31.7 pg (25.0-34.0); Mean Corpuscular Volume 88.6 fL (80.0-100.0); Platelet Count 50 K/uL (130-400); RDW Standard Deviation 44.7 fL (36.4-46.3); Red Blood Count 3.50 M/uL (4.70-6.10)
[2025-05-22 12:14] LABS: Anion Gap 7.0 (3-11); Blood Urea Nitrogen 9.0 mg/dl (6-23); Calcium 8.5 mg/dl (8.6-10.3); Carbon Dioxide 24.0 mmol/L (21-32); Chloride 98.0 mmol/L (98-107); Creatinine Clr Calc Pharmacy 98.2 ml/min; Potassium 4.2 mmol/L (3.5-5.1); Sodium 129.0 mmol/L (136-145)
[2025-05-22 12:38] LABS: Immature Granulocytes # (auto) 0.00 K/uL (0.01-0.20); Immature Granulocytes % (auto) 0.0 %
[2025-05-22 12:48] LABS: White Blood Count 0.89 K/ul (4.8-10.8)
[2025-05-22 12:49] LABS: Tear Drop Cells 1+
--- NOTE | 2025-05-22 14:42 | Discharge Summary ---
Date of Service May 22, 2025 Admission HPI Per Admitting Provider Paras is a pleasant 74yo gentleman with PMH of MDS and remote history of stroke who presented to the ED with a one day history of abdominal "uneasiness", gas, loose stools, and abdominal pain. Of note, pt was managed for norovirus gastroenteritis about 3-4 weeks ago and states his symptoms have been waxing and waning since that time. He has new onset LLQ abdominal pain associated with one month history of lethargy and decreased activity. His notes he has lost 10lbs over the last month unintentionally. He denies fever, chills, CP, SOB, N/V, or trouble with urination. He was also noted to have abnormal labs upon admission. Principal Diagnosis Hypovolemic Hyponatremia, Pancytopenia, Neutropenia, Gastroenteritis Discharge Exam GA: well groomed in no apparent distress laying in bed. AAOx3 HEENT: head normocephalic, atraumatic. EOMI RESP: vesicular breath sounds b/l. No wheezes, rhonchi, or rales CARDIOVASCULAR: S1 and S2 heard. No murmurs, rubs, or gallops. Radial pulses 2+ RRR GI: Normoactive bowel sounds, no tenderness or masses felt to palpation MSK: no gross abnormalities or focal deficits SKIN: warm, dry, no edema PSYCH: appropriate mood and affect NEURO: no focal deficits. speech fluent Discharge Data Allergies Allergy/AdvReac Type Severity Reaction Status Date / Time No Known Drug Allergies Allergy Unknown Unknown Verified 05/21/25 17:18 Consultations 05/21/25 16:17 ED Decision to Admit Stat 05/21/25 20:38 Consult Hematology Routine Ordered Studies 05/21/25 18:31 CT Abd and Pelvis [CT abd pelvis oral and IV con] Routine Hospital Course (1) Gastroenteritis: (2) Left lower quadrant abdominal pain: (3) Myelodysplastic syndrome: (4) Hyponatremia: (5) Weakness: (6) Pancytopenia: Plan 74yo gentleman with PMH of MDS and remote history of stroke who presented to the ED with a one day history of abdominal "uneasiness", gas, loose stools, and abdominal pain. Of note, pt was managed for norovirus gastroenteritis about 3-4 weeks ago and states his symptoms have been waxing and waning since that time. He was noted to have hyponatremia and pancytopenia on admission. He will be admitted and managed for gastroenteritis, hyponatremia, and pancytopenia. #Gastroenteritis -CT abd/pelvis notable for left inguinal hernia without signs of strangulation -s/p IV maintenance fluids -encourage PO intake -Famotidine 20mg bid #LLQ Pain secondary to left inguinal hernia -f/u with general surgery #Hypovolemic Hyponatremia Na 126->127->129, pt asx -encourage PO intake -follow up as outpatient #Pancytopenia #Neutropenia #Myelodysplastic Syndrome WBC 0.89, Hb 11.1, Plat 50 today -Hematology on board, appreciate recs -follow up as outpatient this week -continue home antiviral, antibiotic, and antifungal #Remote history of Stroke -resume home statin -consider antiplatelet therapy for secondary prevention Total Time Total Time Spent Total Time Spent (In Minutes): please see attending attestation Discharge Plan Discharge Items Patient Disposition: Home - Self-Care Reason For Visit: GASTROENTERITIS Discharge Diagnosis: Hyponatremia Condition on Discharge: Fair Activity: Resume your previous activity Non-emergency contact: Primary Care Provider and Oncologist Call non-emergency contact if: you have any medication questions, your symptoms worsen and you have a fever Follow-up/Referrals: Millicent Vargas, [Primary Care Provider] - Diet: Regular Addtl Attending Provider Instructions: You were admitted to the hospital for gastroenteritis-like symptoms and abnormal labs. You were treated with IV fluids and Pepcid to help with your GI symptoms and your chemistry labs improved. Your blood labs were also low but it was felt that since you have a close follow-up appointment with hematology-oncology that you were stable to go home and follow-up with them in the office. It is important for you to stay hydrated and have proper nutrition so that your labs can continue to improve. Medications Your medication list has been reviewed and reconciled. An updated list is included with your discharge paperwork; please review this list closely and make note of any changes. No changes were made to your medications. You make take over the counter Pepcid 20mg twice daily as needed for abdominal discomfort/bloating. Take your medications as instructed; do not skip a dose. Make sure all of your doctors know every medicine you are taking (including [id number] medicines, vitamins, and supplements). Call your PCP before taking any new medicines because some of these may interact with your current medications, or may make your symptoms worse. Follow-up appointments: Make a follow-up appointment with your PCP within the next week. It is very important that you follow up with them shortly after discharge from the hospital. * Please discuss with your PCP about your history of stroke and if you should be on a daily medication, like aspirin, to prevent a recurrent stroke. * Please discuss with your PCP if you should have follow-up labs. Please keep your hematology-oncology appointment this upcoming week. Keep all your follow-up appointments as already scheduled. If you cannot make an appointment, notify your provider. Please bring a copy of this discharge summary with you to your next office appointment so that your provider can review it at that time and stay updated on your hospitalization and potential changes in your care. Contact your PCP if your symptoms return or worsen. Call 911 or go to the ER if you experience any of the following: Sudden, severe abdominal pain or nausea/vomiting Severe chest pain, or chest pain that radiates (moves) to your jaw or arm Sudden, severe shortness of breath or difficulty breathing Thank you for allowing us to participate in your care. Pending Studies at Discharge: No Stand-Alone Forms: My [facility] [employer], Smoking Cessation Medications and DC Order Prescriptions: Continued atorvastatin [Lipitor] 10 mg tablet 10 mg PO [id number] Patient Comments: Pt states he is taking 10mg M/W/F Rx Instructions: Mon, Wed, Fri. @ HS fluconazole 200 mg Tablet 200 mg PO HS acyclovir 400 mg tablet 400 mg PO BID fluticasone propionate [Flonase Allergy Relief] 50 mcg/actuation spray,suspension 1 spray intranasal DAILY PRN (Reason: prn) Rx Instructions: administer into each nostril cefdinir 300 mg Capsule 300 mg PO BID Patient Comments: new rx>takes as a preventative Discharge Orders: Discharge Order (Routine); Ordered 05/22/25 Ordered By: Edwin Gonzalez/Other Patient Handouts: Hyponatremia Dc Admission Data Admit Date/Time: 05/21/25 17:56 Attending Provider: Edwin Olivares Admit Provider: Edwin Houston Primary Care Provider: Millicent Vargas Other Providers: Edwin Olivares; Ajala,Kerri Other Interventions: Discharge Summary Assessment (RN) Last Done: 05/22/25 15:08 Supervising Physician Co-Signing Physician Notes Attending attestation Pt seen and examined in concert with Dr. Houston. In agreement with the documented findings as noted in the resident documentation with any exceptions or additions as noted here. Sitting in chair at bedside without acute complaint. Minimal subacute LLQ abdominal pain. Feeling back to baseline without neurologic sx. Spouse at bedside corroborating history. VS as noted. On examination, S1/S2 nl RRR no MCG. CTAB. Abd NT/ND BS+ve. CT A/P w/ contrast w/o causative findings for pain. Gastroenteritis - symptoms gradually improved w/ ondansetron PRN and famotidine BID. Continue on discharge, encourage PO hydration Hypovolemic hyponatremia - improve w/ hydration w/ baseline of the low 130s. Agree w/ ongoing hydration, dietary support and follow up with PCP for repeat and monitoring w/ precautions re: worsening condition. Myelodysplastic syndrome w/ chronic pancytopenia - hematology aware and will follow in outpatient without need for acute management. Continue PO cefdinir and acyclovir h/o CVA - continue statin therapy. Strongly encourage primary care discussion re: resumption of ASA following GI illness resolution as has not been on to his knowledge for some time. Else see resident documentation as noted. Total attending physician time spent with this patient's care on the day of discharge: 45 minutes. Resident Activity Tracking Resident Involvement: Resident Care Provided Care Provided: Adult Hospital Medicine
== END 2025-05-22 16:00 | disposition home or self-care (01) | DRG 392 ==
LOC: ED 13:25 → EDINP 17:56 → 3E 20:15